=== PATIENT | female | born 1940 | race American Indian/Alaskan Native ===

== ENCOUNTER 2017-08-19 18:22 | Emergency (ER) | payer MEDICARE ==
[2017-08-19 18:23] VITALS: BMI 26.6
[2017-08-19 18:29] VITALS: BP 149/70; PULSE 84; RESP 16; TEMP 98; O2SAT 98
--- NOTE | 2017-08-19 18:44 | ED PDOC ---
Lower Extremity Pain/Injury Time Seen by Provider: 08/19/17 18:35 Chief Complaint (Nursing): Lower Extremity Problem/Injury Chief Complaint (Provider): Right Knee Pain History Per: Patient History/Exam Limitations: no limitations Onset/Duration Of Symptoms: Other Current Symptoms Are (Timing): Still Present Severity: None Additional Complaint(s): 77 year old female with a past medical history of diabetes, hypertension, cardiac stents and mild kidney disease presents to the emergency department complaining of right knee pain. Patient reports that this pain has been ongoing for months but it has worsened over the last few weeks. She also notes a sharp crampy pain in the knee. Has not taken any medications for pin. PMD: Britt Rasmussen Past Medical History Reviewed: Historical Data, Nursing Documentation, Vital Signs Vital Signs: Last Vital Signs Temp 98.0 F 08/19/17 18:26 Pulse 84 08/19/17 18:26 Resp 16 08/19/17 18:26 BP 149/70 08/19/17 18:26 Pulse Ox 98 08/19/17 18:26 - Medical History PMH: CHF, HTN, Hypercholesterolemia, Hyperlipidemia Denies: Chronic Kidney Disease - Surgical History Surgical History: Denies: Pacemaker Other surgeries: cardiac stents - Family History Family History: States: Diabetes, Hypertension - Immunization History Hx Tetanus Toxoid Vaccination: Yes Hx Influenza Vaccination: Yes Hx Pneumococcal Vaccination: Yes - Home Medications Home Medications: Ambulatory Orders Medication Instructions Recorded Aspirin [Ecotrin] 81 mg PO DAILY 10/10/15 Nifedipine [Nifedipine ER] 90 mg PO DAILY 10/10/15 Magnesium Oxide [Magnesium] 400 mg PO MWF 04/17/16 [id number] Ethyl Esters [OMEGA 3] 1 gm PO DAILY 04/17/16 Potassium Chloride [Klor-Con 10] 10 meq PO DAILY 04/17/16 Ubidecarenone [Co Q10] 100 mg PO DAILY 04/17/16 Metoprolol Succinate 25 mg PO DAILY 04/25/16 traMADol [Ultram] 50 mg PO Q8 05/22/16 Furosemide [Lasix] 20 mg PO DAILY 06/01/17 Glimepiride 1 mg PO DAILY 06/01/17 Lisinopril [Zestril] 20 mg PO DAILY 06/01/17 metFORMIN [glucOPHAGE] 2,000 mg PO DAILY 04/15/18 Diclofenac Sodium [Voltaren] 2 gm TP BID PRN #100 gel..gram. 08/19/17 - Allergies Allergies/Adverse Reactions: Allergies Allergy/AdvReac Type Severity Reaction Status Date / Time No Known Allergies Allergy Verified 06/01/17 12:45 Review of Systems Musculoskeletal: Positive for: Other (right knee pain) Physical Exam - Reviewed Nursing Documentation Reviewed: Yes Vital Signs Reviewed: Yes - Physical Exam Appears: Positive for: Non-toxic, No Acute Distress Skin: Positive for: Normal Color, Warm, Dry. Negative for: Rash Eye Exam: Positive for: Normal appearance, EOMI, PERRL Extremity: Positive for: Other (no effusion , erythema to right knee; non- tender right knee; able to flex and extend; negative Holmans sign; mild ankle edema noted ). Negative for: Tenderness, Calf Tenderness, Deformity, Swelling Neurologic/Psych: Positive for: Alert, Oriented, Gait - ECG O2 Sat by Pulse Oximetry: 98 (RA) Pulse Ox Interpretation: Normal - Progress ED Course And Treament: knee xryMPRESSION: 1. Negative for acute bone abnormality. 2. Normal variation RIGHT patella 3. Soft tissue effusion suprapatellar bursa 4. Mild osteoarthritis Thank you for allowing us to participate in the care of your patient. Dictated and Authenticated by: Jakob New MD Medical Decision Making Medical Decision Makin Initial Impression 77 year old female presenting with right knee pain Initial plan: * RAD right knee * Reevaluation Documented by Perla Rm acting as a scribe for Jamie Beaulieu PA-C. All medical record entries made by the Scribe were at my direction and personally dictated by me. I have reviewed the chart and agree that the record accurately reflects my personal performance of the history, physical exam, medical decision making, and the department course for this patient. I have also personally directed, reviewed, and agree with the discharge instructions and disposition. Disposition - Clinical Impression Clinical Impression: Arthritis, Knee effusion - Patient ED Disposition Is Patient to be Admitted: No - Disposition Disposition: Routine/Home Disposition Time: :44 Condition: FAIR Prescriptions: Diclofenac Sodium [Voltaren] 2 gm TP BID PRN #100 gel..gram. PRN Reason: Pain, Moderate (4-7) Instructions: Osteoarthritis (DC)
--- NOTE | 2017-08-20 08:48 | RAD ---
PROCEDURE: Right Knee Radiographs. HISTORY: KNEE PAIN COMPARISON: None. FINDINGS: BONES: No acute fracture. JOINTS: Tricompartmental osteoarthritis. JOINT EFFUSION: Minimal suprapatellar joint effusion. OTHER FINDINGS: Vascular calcifications. IMPRESSION: No acute fracture. Please note that this report is in general agreement with the preliminary report provided by [facility].
== END 2017-08-19 20:14 | disposition home or self-care (01) ==
LOC: H.ER 18:22
DX: M25.461 Effusion, right knee (principal)

== ENCOUNTER 2018-03-03 06:28 | Inpatient (IN) | payer MEDICARE ==
[2017-12-30 10:42] VITALS: BMI 27.3
[2018-03-03 08:22] LABS: BASO # 0.1 K/uL (0.0-0.2); BASO % 0.7 % (0.0-2.0); EOS # 0.2 K/uL (0.0-0.7); EOS % 3.2 % (0.0-4.0); HEMOGLOBIN 10.7 g/dL (12.0-16.0); LYMPH # 1.8 K/uL (1.0-4.3); LYMPH % 25.4 % (20.0-40.0); MEAN CELL VOLUME 85.4 fl (81.0-99.0); MEAN CORPUSCULAR HEMOGLOBIN 27.2 pg (27.0-31.0); MEAN CORPUSCULAR HGB CONC 31.9 g/dL (33.0-37.0); MEAN PLATELET VOLUME 9.5 fl (7.2-11.7); MONO # 0.5 K/uL (0.0-0.8); MONO % 7.2 % (0.0-10.0); NEUT # 4.6 K/uL (1.8-7.0); NEUT % 63.5 % (50.0-75.0); NRBC % 0.1 % (0.0-0.0); RBC 3.94 Mil/uL (3.80-5.20); RED CELL DISTRIBUTION WIDTH 15.7 % (11.5-14.5); WHITE BLOOD COUNT 7.2 K/uL (4.8-10.8)
[2018-03-03 08:31] LABS: ALB/GLOB RATIO 1.2 (1.0-2.1); ALBUMIN 4.2 g/dL (3.5-5.0); ALT/SGPT 24 U/L (9-52); AST/SGOT 20 U/L (14-36); BLOOD UREA NITROGEN 13 mg/dl (7-17); GFR NON-AFRICAN AMERICAN 54
[2018-03-03 08:32] LABS: PROTHROMBIN TIME 11.7 Seconds (9.8-13.1)
[2018-03-03 08:34] LABS: PARTIAL THROMBOPLASTIN TIME 33.9 Seconds (25.6-37.1)
[2018-03-03] MEDS ORDERED: Propofol 10 mg/ml Inj (20 ML) ONE (09:36)
[2018-03-03] MEDS ORDERED: Lidocaine 4% (Laryng-O-Jet) Kit MM ONE (09:37)
[2018-03-03] MEDS ORDERED: Rocuronium 10 mg/ml (5 ml) ONE (09:37)
[2018-03-03] MEDS ORDERED: Etomidate 20 mg/10ml Inj IV ONE (09:37)
[2018-03-03] MEDS ORDERED: Succinylcholine Chloride 20 mg/ml Syr (5 ml) IV ONE (09:37)
--- NOTE | 2018-03-03 09:47 | CP.PCM.HP ---
Past Patient History - Past Medical History & Family History Past Medical History?: Yes - Past Social History Smoking Status: Former Smoker - CARDIAC Hx Cardiac Disorders: Yes Hx Congestive Heart Failure: Yes Hx Hypercholesterolemia: Yes Hx Hypertension: Yes Hx Pacemaker: No Other/Comment: STENT - PULMONARY Hx Respiratory Disorders: No - NEUROLOGICAL Hx Neurological Disorder: No Hx Paralysis: No - HEENT Hx HEENT Problems: No - RENAL Hx Chronic Kidney Disease: No - ENDOCRINE/METABOLIC Hx Endocrine Disorders: Yes Hx Diabetes Mellitus Type 2: Yes - HEMATOLOGICAL/ONCOLOGICAL Hx Blood Disorders: No Hx Blood Transfusions: No Hx Blood Transfusion Reaction: No - INTEGUMENTARY Hx Dermatological Problems: No - MUSCULOSKELETAL/RHEUMATOLOGICAL Hx Musculoskeletal Disorders: Yes Hx Arthritis: Yes (knees) Hx Falls: No - GASTROINTESTINAL Hx Gastrointestinal Disorders: No Other/Comment: stomach infection (diagnosed 10/27/2015) - GENITOURINARY/GYNECOLOGICAL Hx Genitourinary Disorders: No - PSYCHIATRIC Hx Emotional Abuse: No Hx Physical Abuse: No - SURGICAL HISTORY Hx Surgeries: Yes Hx Cataract Extraction: Yes (bilateral) Hx Coronary Stent: Yes Hx Eye Surgery: Yes Other/Comment: clogged artery-stent placement 2017. biosy of the pancreas - ANESTHESIA Hx Anesthesia: Yes Hx Anesthesia Reactions: No Hx Malignant Hyperthermia: No Has any member of the family had a problem w/ anesthesia?: No Meds Allergies/Adverse Reactions: Allergies Allergy/AdvReac Type Severity Reaction Status Date / Time No Known Allergies Allergy Verified 03/03/18 08:08 Results - Vital Signs Recent Vital Signs: Last Vital Signs Temp 97.8 F 03/03/18 08:01 Pulse 61 03/03/18 08:01 Resp 18 03/03/18 08:01 BP 164/81 H 03/03/18 08:01 Pulse Ox 98 03/03/18 08:01 - Labs Result Diagrams: 03/03/18 08:14 03/03/18 08:14 Labs: Laboratory Results - last 24 hr 03/03/18 03/03/18 03/03/18 07:43 08:14 08:14 WBC 7.2 RBC 3.94 Hgb 10.7 L Hct 33.7 L MCV 85.4 MCH 27.2 MCHC 31.9 L RDW 15.7 H Plt Count 226 MPV 9.5 Neut % (Auto) 63.5 Lymph % (Auto) 25.4 Upson % (Auto) 7.2 Eos % (Auto) 3.2 Baso % (Auto) 0.7 Neut # (Auto) 4.6 Lymph # (Auto) 1.8 Upson # (Auto) 0.5 Eos # (Auto) 0.2 Baso # (Auto) 0.1 PT 11.7 INR 1.0 APTT 33.9 Sodium Potassium Chloride Carbon Dioxide Anion Gap BUN Creatinine Est GFR ( Amer) Est GFR (Non-Af Amer) POC Glucose (mg/dL) 141 H Random Glucose Calcium Total Bilirubin AST ALT Alkaline Phosphatase Total Protein Albumin Globulin Albumin/Globulin Ratio Blood Type Antibody Screen BBK History Checked 03/03/18 03/03/18 08:14 08:14 WBC RBC Hgb Hct MCV MCH MCHC RDW Plt Count MPV Neut % (Auto) Lymph % (Auto) Upson % (Auto) Eos % (Auto) Baso % (Auto) Neut # (Auto) Lymph # (Auto) Upson # (Auto) Eos # (Auto) Baso # (Auto) PT INR APTT Sodium 141 Potassium 3.4 L Chloride 106 Carbon Dioxide 26 Anion Gap 12 BUN 13 Creatinine 1.0 Est GFR ( Amer) > 60 Est GFR (Non-Af Amer) 54 POC Glucose (mg/dL) Random Glucose 152 H Calcium 10.0 Total Bilirubin 0.8 AST 20 ALT 24 Alkaline Phosphatase 85 Total Protein 7.5 Albumin 4.2 Globulin 3.3 Albumin/Globulin Ratio 1.2 Blood Type AB POSITIVE Antibody Screen Negative BBK History Checked No verified bt
[2018-03-03] MEDS ORDERED: Bacitracin Ointment 30 GM TUBE ONE (09:51)
[2018-03-03] MEDS ORDERED: ceFAZolin IV 1 gm in Dextrose 1 GM/50 ML BAG IVPB ONE (09:51)
[2018-03-03] MEDS ORDERED: Lactated Ringer's 1,000 ML IV ONE ×2 (10:05→12:45)
[2018-03-03] MEDS ORDERED: Calcium Chloride 1000 mg/10 ml Syringe ONE (11:03)
[2018-03-03] MEDS: Bupivacaine 0.5% Inj(30mL) ONE ×2 (11:12→11:50)
[2018-03-03] MEDS: EPINEPHrine 1 mg/ml (1:1000) Inj ONE ×2 (11:13→11:50)
[2018-03-03] MEDS: Morphine 1 mg/ml preservative-free Inj(Duramorph) ONE ×2 (11:14→11:50)
[2018-03-03] MEDS ORDERED: Neostigmine 1:1000 (1 mg/ml) Inj ONE (12:03)
[2018-03-03] MEDS ORDERED: HYDROmorphone 0.5 mg/0.5 ml ISec IVP PRN (12:44)
[2018-03-03] MEDS ORDERED: Bisacodyl 5mg EC Tab PO PRN (12:49)
[2018-03-03] MEDS ORDERED: Oxycodone/Acetaminophen 5/325 mg Tab PO PRN ×2 (12:49→12:58)
--- NOTE | 2018-03-03 12:49 | PCM.SURG1 ---
Surgeon's Initial Post Op Note - Surgeon's Notes Surgeon: Brett Tolbert MD Mohs Surgeon: Navin Watts PA-C Type of Anesthesia: General Endo Anesthesia Administered By: Dr. Ibarra Pre-Operative Diagnosis: Right knee DJD Operative Findings: tourniquet: 95min @300mmHG Post-Operative Diagnosis: same Operation Performed: Right total knee replacement Specimen/Specimens Removed: bone Estimated Blood Loss: EBL {In ML}: 200 Blood Products Given: N/A Drains Used: No Drains Post-Op Condition: Fair Date of Surgery/Procedure: 03/03/18 Time of Surgery/Procedure: 12:49
[2018-03-03] MEDS ORDERED: Sodium Chloride 0.9% 1,000 ML IV SCH (13:00)
--- NOTE | 2018-03-03 14:57 | RAD ---
Date of service: 03/03/2018 PROCEDURE: Right Knee Radiographs. HISTORY: pt in pacu s/p TKR right COMPARISON: None. FINDINGS: BONES: No acute fracture. Status post total knee replacement. JOINTS: Total knee replacement. JOINT EFFUSION: None. OTHER FINDINGS: Postoperative changes and in anterior soft tissues. IMPRESSION: Status post right TKR.
[2018-03-03] MEDS: Insulin Regular 100 units/ml SC SCH ×2 (17:36→21:39)
[2018-03-03] MEDS: ceFAZolin 2 GM in Sodium Chloride 0.9% 100 ML IVPB SCH (19:08)
[2018-03-03] MEDS: oxyCODONE 10 mg ER Tab (oxyCONTIN) PO SCH (21:32)
--- NOTE | 2018-03-03 23:55 | OP ---
PROCEDURE DATE: 03/03/2018 ATTENDING PHYSICIAN: Brigette Tolbert MD CREAM GATHERER: Jesús Frias PA-C PREOPERATIVE DIAGNOSIS: Right knee osteoarthritis. POSTOPERATIVE DIAGNOSIS: Right knee osteoarthritis. PROCEDURE: Right total knee replacement. IMPLANTS: DePuy Attune knee system, size 6 femur, size 5 tibial base plate, 11 mm polyethylene insert, 32 mm patellar button. ANESTHESIA TYPE: General. ESTIMATED BLOOD LOSS: 100 mL. COMPLICATIONS: None. HISTORY: The patient with prolonged history of right knee pain progressively getting worse despite extensive conservative management, which included activity modification, injections, anti-inflammatory modification and physical therapy. X-rays had revealed advanced arthritis. Patient was indicated for total knee replacement due to continued pain and limited mobility. I had a detailed discussion with the patient in the office explaining the nature of the surgery, alternatives of surgery, risks and benefits, rehabilitation protocol and surgical markings. Risks of surgery include but not limited to continued pain, lack of motion, infection, vascular injury, DVT / PE, nerve injury including peroneal nerve dysfunction, reflex sympathetic dystrophy, compartment syndrome, unforeseen medical and/or anesthesia complications, limb loss, and even . The patient expressed an understanding of the risks and possible benefits of the procedure, and is also aware of the alternatives to surgery. PROCEDURE: On the day of the surgery, the patient was admitted to pre-operative holding area. A laterality sheet was completed confirming the correct operative site. The correct surgical knee was marked in the holding area and informed consent was signed from the patient. Once again, I reviewed the risks and benefits of the surgery with the patient in detail. These risks include but are not limited to continued pain, lack of motion, infection, vascular injury, DVT / PE, nerve injury including peroneal nerve dysfunction, reflex sympathetic dystrophy, symptomatic hardware, need for further procedure and surgeries, instability, iatrogenic fractures, compartment syndrome, unforeseen medical and/or anesthesia complications, limb loss, and even . The patient expressed an understanding of the risks and possible benefits of the procedure, also aware of the alternatives to surgery and signed the informed consent. The patient was transported to the operating room and placed in the supine position, general anesthesia was obtained. Exam under anesthesia revealed 5 degrees of flexion contracture and flexion to 120, stable to varus and valgus stress. A padded tourniquet was applied to patient's operative thigh and appropriate prophylactic antibiotics were given. The operative leg was draped and prepped in standard sterile manner. Timeout was completed, confirming patient's right knee to be the correct operative site. Using an Esmarch, the extremity was exsanguinated and tourniquet was inflated to 350 mmHg. The surgical incision markings were made using patella border, tibial tubercle, patella and quadriceps tendon. Using a 10 blade, a midline incision was made. Skin dissection was taken until the prepatellar fascia was identified and the corners of the patellar tendon were marked for proper closure at the end of the procedure. Using a fresh 10 blade, a medial parapatellar arthrotomy was performed. The knee was exposed in the standard manner. The deep MCL was elevated for exposure, medial and lateral menisci were removed, ACL and PCL were also transected. The tibia was subluxed anteriorly. Planned tibial cut was made with power saw, using extra-medullary guide, perpendicular to mechanical axis of the tibia. After the cut was made, the alignment was also checked and was found to be appropriate. Tibial cut surface was measured with trial base plate and it was noted that size 5 was provide sufficient coverage without overhang. Tibial component was externally rotated and marked. Next, the knee was placed into 90 degrees of flexion. A drill hole was made within the femoral notch anterior to PCL insertion for placement of intramedullary femoral jose miguel. Intramedullary femoral jose miguel was inserted within the femoral canal and planned distal femoral cut was made. After the cut, knee was brought into full extension. Spacer blocks were used to check the extension balancing both in full extension and 30 degrees of flexion. It was found that 11 mm trial spacer block allowed full extension with symmetric varus and valgus balancing. Next we proceed with Patella resurfacing. Patella width was found to 26 mm. Using the free-hand technique the arthritic patella surface was resected. Patella was sized using the guide and it was noted that 32 mm Patella dome button would be appropriate for the patient. Next the size of femoral component was determined using the posterior referencing guide. It was noted that a size 6 femur would be appropriate for this patient without causing any significant notching. A 4 x 1 cutting block was placed and flexion gap balancing was checked. The flexion gap was found to be symmetric to the extension gap. Anterior and posterior condyle, anterior and posterior chamfer cuts were made. Next, appropriate size box cut for femoral component was prepared using the guide. The femoral trial component was impacted onto the distal femur. Appropriate size tibial trial component was also placed on the cut surface of the tibia. Using the drill and punch, keel for tibial implant was prepared. Trial tibial tray was secured onto the tibia using pins. Different size trial polyethylene inserts were secured on to the trial tibial tray to critically assess the following parametes: Full range of motion, extension and flexion gap balancing, mid-flexion stability, anterior and posterior drawer, and patellar tracking. All parameter were found to be satisfactory with 11 mm insert. All the trial components were removed. Implants were opened on the back table. Cement was mixed and we proceed with cement fixation of the implants. Tibial tray, femoral component and patellar dome button were secured with cement. Polyethylene insert was secured onto the tibial tray using locking mechanism. The knee was reduced and brought into full extension. Cement was allowed to harden until final component fixation. Knee was taken through the final range of motion for stability testing, and found to be satisfactory. 60 mL of custom cocktail mixture was injected into posterior capsule, MCL, LCL, quadriceps tendon, and patellar tendon. Wound was copiously irrigated with sterile antibiotic solution using pulse lavage. Arthrotomy was closed using heavy suture and wound was closed in standard manner. Patient was extubated, transferred to stretcher and taken to the recovery room. Post-operative instructions were provided, physical therapy consult was requested along with DVT prophylaxis and appropriate pain medications. During this procedure, I was assisted by Jesús Frias PA-C,, who assisted in positioning the patient on the operating room table as well as transferring the patient from the operating room table to the recovery room stretcher. In addition, Jesús Frias PA-C assisted me during the actual operative procedure by positioning, protecting critical neurovascular structures, exposure of the joint, and proper positioning of the implants. The presence of Jesús Frias PA-C,as my operative horticultural nursery assistant was medically necessary to ensure the utmost safety of the patient in the pre, intra-, and post-operative periods. Brigette Tolbert MD
[2018-03-04] MEDS: ceFAZolin 2 GM in Sodium Chloride 0.9% 100 ML IVPB SCH (02:10)
[2018-03-04 07:06] LABS: CALCIUM 8.9 mg/dL (8.4-10.2)
[2018-03-04 07:12] LABS: HEMOGLOBIN 8.9 g/dL (12.0-16.0); MEAN CELL VOLUME 83.9 fl (81.0-99.0); MEAN CORPUSCULAR HEMOGLOBIN 27.8 pg (27.0-31.0); MEAN CORPUSCULAR HGB CONC 33.1 g/dL (33.0-37.0); RBC 3.2 Mil/uL (3.80-5.20); RED CELL DISTRIBUTION WIDTH 15.9 % (11.5-14.5); WHITE BLOOD COUNT 8.1 K/uL (4.8-10.8)
[2018-03-04] MEDS ORDERED: NIFEdipine 90 mg ER Tab PO SCH (09:00)
[2018-03-04] MEDS ORDERED: Metoprolol Succinate 25 mg XL Tab PO SCH (09:00)
[2018-03-04] MEDS ORDERED: Potassium Chloride 10 mEq ER Tab PO SCH (09:00)
[2018-03-04] MEDS ORDERED: Magnesium Oxide 400 mg Tab UD PO SCH (09:00)
[2018-03-04] MEDS: Insulin Regular 100 units/ml SC SCH ×4 (09:45→22:07)
[2018-03-04] MEDS: oxyCODONE 10 mg ER Tab (oxyCONTIN) PO SCH ×2 (09:59→20:52)
--- NOTE | 2018-03-04 10:31 | CP.PCM.PN ---
Subjective - Date & Time of Evaluation Date of Evaluation: 03/04/18 Time of Evaluation: 09:30 - Subjective Subjective: Patient seen and examined at bedside comfortable. Pain well controlled. No acute events overnight. Denies CP/SOB/N/fever. Objective - Vital Signs/Intake and Output Vital Signs (last 24 hours): Temp Pulse Resp BP Pulse Ox 99.4 F 68 20 120/67 98 03/04/18 07:48 03/04/18 09:50 03/04/18 07:48 03/04/18 09:50 03/04/18 07:48 - Medications Medications: Current Medications Aspirin (Ecotrin) 81 mg PO DAILY [facility] Last Admin: 03/04/18 09:49 Dose: 81 mg Atorvastatin Calcium (Lipitor) 80 mg PO DAILY [facility] Last Admin: 03/04/18 09:51 Dose: 80 mg Bisacodyl (Dulcolax) 10 mg PO HS PRN PRN Reason: Constipation Celecoxib (Celebrex) 200 mg PO DAILY [facility] Last Admin: 03/04/18 09:50 Dose: 200 mg Docusate Sodium (Colace) 100 mg PO BID [facility] Last Admin: 03/04/18 09:51 Dose: 100 mg Enoxaparin Sodium (Lovenox) 40 mg SC Q24H [facility]; Protocol Furosemide (Lasix) 20 mg PO DAILY [facility] Last Admin: 03/04/18 09:50 Dose: 20 mg Glipizide (Glucotrol Xl) 2.5 mg PO DAILYWM [facility] Sodium Chloride (Sodium Chloride 0.9%) 1,000 mls @ 80 mls/hr IV .[id number] [facility] Stop: 03/04/18 13:59 Last Admin: 03/04/18 01:07 Dose: 80 mls/hr Insulin Human Regular (Humulin R) 0 units SC ACHS [facility]; Protocol Last Admin: 03/04/18 09:45 Dose: Not Given Ketorolac Tromethamine (Toradol) 15 mg IVP Q6 [facility] Stop: 03/05/18 10:01 Last Admin: 03/04/18 04:32 Dose: 15 mg Lisinopril (Zestril) 20 mg PO DAILY [facility] Last Admin: 03/04/18 09:50 Dose: 20 mg Magnesium Oxide (Mag-Ox) 400 mg PO DAILY [facility] Last Admin: 03/04/18 09:50 Dose: 400 mg [facility] Metoprolol Succinate (Toprol Xl) 25 mg PO DAILY [facility] Last Admin: 03/04/18 09:50 Dose: 25 mg Nifedipine (Procardia Xl) 90 mg PO DAILY [facility] Last Admin: 03/04/18 09:51 Dose: 90 mg Ondansetron HCl (Zofran Inj) 4 mg IVP Q6 PRN PRN Reason: Nausea/Vomiting Oxycodone HCl (Oxycontin Extended Release Tab) 10 mg PO Q12 [facility] Stop: 03/06/18 21:01 Last Admin: 03/04/18 09:59 Dose: 10 mg Oxycodone/Acetaminophen (Percocet 5/325 Mg Tab) 1 tab PO Q4 PRN PRN Reason: Pain, moderate (4-7) Stop: 03/06/18 12:50 Oxycodone/Acetaminophen (Percocet 5/325 Mg Tab) 2 tab PO Q4 PRN PRN Reason: Pain, severe (8-10) Stop: 03/06/18 12:59 Potassium Chloride (Klor-Con 10) 10 meq PO DAILY [facility] Last Admin: 03/04/18 09:50 Dose: 10 meq - Labs Labs: 03/04/18 06:00 03/04/18 06:00 PT 11.7 Seconds (9.8-13.1) 03/03/18 08:14 INR 1.0 03/03/18 08:14 APTT 33.9 Seconds (25.6-37.1) 03/03/18 08:14 - Extremities Exam Additional comments: R knee: Dressings CDI sensation intact SP/DP/TN motor intact EHL/FHL/TA/G pedal pulses intact calves soft NT b/l Assessment and Plan (1) Osteoarthritis of right knee Assessment & Plan: POD#1 s/p R TKA -pain control -PT/OT WBAT -DVT ppx -orthopedically stable for d/c to TCU -above d/w Dr. Tolbert in agreement Status: Acute
[2018-03-04] MEDS ORDERED: Enoxaparin 40 mg Syringe SC SCH (12:00)
--- NOTE | 2018-03-04 12:11 | CP.PCM.HP ---
History of Present Illness - History of Present Illness History of Present Illness: CC: R knee pain HPI: 78 YO Female with PMHx of HTN, NIDDM, OA and HLD presented to [facility] ED with severe R knee pain. Pt has chronic knee pain but worsened over the last couple of days. No relief with PO pain meds. PMD: Dr. Jones PMHx: HTN, T2DM,HLD. SurgHx: denies FH: HTN and DM Shx: denies ETOH, smoking and illicit drug use Allergies: NKDA Present on Admission - Present on Admission Any Indicators Present on Admission: No Review of Systems - Cardiovascular Cardiovascular: absent: Chest Pain, Dyspnea, Palpitations - Respiratory Respiratory: absent: Cough, Dyspnea - Gastrointestinal Gastrointestinal: absent: Abdominal Pain, Nausea, Vomiting - Musculoskeletal Musculoskeletal: Other (R knee pain ) Past Patient History - Past Medical History & Family History Past Medical History?: Yes - Past Social History Smoking Status: Former Smoker Alcohol: None Drugs: Denies - CARDIAC Hx Cardiac Disorders: Yes Hx Congestive Heart Failure: Yes Hx Hypercholesterolemia: Yes Hx Hypertension: Yes Hx Pacemaker: No Other/Comment: STENT - PULMONARY Hx Respiratory Disorders: No - NEUROLOGICAL Hx Neurological Disorder: No Hx Paralysis: No - HEENT Hx HEENT Problems: No - RENAL Hx Chronic Kidney Disease: No - ENDOCRINE/METABOLIC Hx Endocrine Disorders: Yes Hx Diabetes Mellitus Type 2: Yes - HEMATOLOGICAL/ONCOLOGICAL Hx Blood Disorders: No Hx Blood Transfusions: No Hx Blood Transfusion Reaction: No - INTEGUMENTARY Hx Dermatological Problems: No - MUSCULOSKELETAL/RHEUMATOLOGICAL Hx Musculoskeletal Disorders: Yes Hx Arthritis: Yes (knees) Hx Falls: No - GASTROINTESTINAL Hx Gastrointestinal Disorders: No Other/Comment: stomach infection (diagnosed 10/27/2015) - GENITOURINARY/GYNECOLOGICAL Hx Genitourinary Disorders: No - PSYCHIATRIC Hx Emotional Abuse: No Hx Physical Abuse: No - SURGICAL HISTORY Hx Surgeries: Yes Hx Cataract Extraction: Yes (bilateral) Hx Coronary Stent: Yes Hx Eye Surgery: Yes Other/Comment: clogged artery-stent placement 2017. biosy of the pancreas - ANESTHESIA Hx Anesthesia: Yes Hx Anesthesia Reactions: No Hx Malignant Hyperthermia: No Has any member of the family had a problem w/ anesthesia?: No Meds Allergies/Adverse Reactions: Allergies Allergy/AdvReac Type Severity Reaction Status Date / Time No Known Allergies Allergy Verified 03/03/18 08:08 Physical Exam - Constitutional Appears: No Acute Distress, Other (sitting up in chair ) - Head Exam Head Exam: NORMAL INSPECTION - Eye Exam Eye Exam: EOMI, Normal appearance - Respiratory Exam Respiratory Exam: Clear to Auscultation Bilateral. absent: Rhonchi, Wheezes - Cardiovascular Exam Cardiovascular Exam: REGULAR RHYTHM, +S1, +S2 - GI/Abdominal Exam GI & Abdominal Exam: Normal Bowel Sounds, Soft. absent: Tenderness - Extremities Exam Extremities exam: Negative for: pedal edema Additional comments: R knee in dressing Tenderness to palpation, moving toes and ankle, Good cap refill - Neurological Exam Neurological exam: Alert, Oriented x3 Results - Vital Signs Recent Vital Signs: Last Vital Signs Temp 99.4 F 03/04/18 07:48 Pulse 68 03/04/18 09:50 Resp 20 03/04/18 07:48 BP 120/67 03/04/18 09:50 Pulse Ox 98 03/04/18 07:48 - Labs Result Diagrams: 03/04/18 06:00 03/04/18 06:00 Labs: Laboratory Results - last 24 hr 03/03/18 03/03/18 03/03/18 08:14 12:48 15:46 WBC RBC Hgb Hct MCV MCH MCHC RDW Plt Count Sodium Potassium Chloride Carbon Dioxide Anion Gap BUN Creatinine Est GFR ( Amer) Est GFR (Non-Af Amer) POC Glucose (mg/dL) 147 H 149 H Random Glucose Hemoglobin A1c 7.5 H Calcium 03/03/18 03/04/18 03/04/18 21:08 05:30 06:00 WBC 8.1 RBC 3.20 L Hgb 8.9 L Hct 26.9 L MCV 83.9 MCH 27.8 MCHC 33.1 RDW 15.9 H Plt Count 151 Sodium Potassium Chloride Carbon Dioxide Anion Gap BUN Creatinine Est GFR ( Amer) Est GFR (Non-Af Amer) POC Glucose (mg/dL) 152 H 131 H Random Glucose Hemoglobin A1c Calcium 03/04/18 03/04/18 06:00 11:23 WBC RBC Hgb Hct MCV MCH MCHC RDW Plt Count Sodium 139 Potassium 3.6 Chloride 106 Carbon Dioxide 27 Anion Gap 10 BUN 14 Creatinine 1.1 Est GFR ( Amer) 58 Est GFR (Non-Af Amer) 48 POC Glucose (mg/dL) 158 H Random Glucose 143 H Hemoglobin A1c Calcium 8.9 Assessment & Plan - Assessment and Plan (Free Text) Assessment: Assessment/Plan: 78 YO Female with PMHx of HTN, NIDDM, OA and HLD is admitted for TKR. DJD/OA -ortho consulted -s/p R TKR, POD1 -pain management -c/w Lovenox SC -PT/OT on board HTN/NIDDM/HLD -chronic and controlled -c/w meds
[2018-03-04 23:00] VITALS: BP 103/60; PULSE 77; RESP 20; TEMP 98.3; O2SAT 77
[2018-03-05] MEDS ORDERED: GlipiZIDE 2.5 mg SR Tab PO SCH (08:00)
== END 2018-03-04 22:30 | DRG 470 ==
LOC: H.OPSURG 06:28 → H.MEDSURG1 12:49 → H.OPSURG 15:15
PROVIDERS: ADMIT Family Medicine; ATTEND Family Medicine
PROC: 0SRC0J9 Replacement of Right Knee Joint with Synthetic Substitute, Cemented, Open Approach (ICD-10-PCS; principal; 2018-03-03 13:15)
DX: M17.11 Unilateral primary osteoarthritis, right knee (principal); I11.0 Hypertensive heart disease with heart failure; I50.9 Heart failure, unspecified; E11.9 Type 2 diabetes mellitus without complications; E78.00 Pure hypercholesterolemia, unspecified; E78.5 Hyperlipidemia, unspecified; G89.29 Other chronic pain; Z87.891 Personal history of nicotine dependence; M24.561 Contracture, right knee

== ENCOUNTER 2018-03-04 22:33 | Inpatient (IN) | payer MEDICARE ==
[2018-03-04 23:06] VITALS: BMI 28.8
[2018-03-04] MEDS ORDERED: Oxycodone/Acetaminophen 5/325 mg Tab PO PRN ×2 (23:12)
[2018-03-05] MEDS: Insulin Regular 100 units/ml SC SCH ×4 (07:01→21:44)
[2018-03-05 08:16] VITALS: RESP 20
--- NOTE | 2018-03-05 08:35 | CP.PCM.HP ---
<Vicky Fried - Last Filed: 03/05/18 08:38> History of Present Illness - History of Present Illness History of Present Illness: HPI: 78 YO Female with PMHx of HTN, NIDDM, OA and HLD was admitted in 6S for severe knee pain. Pt has chronic knee pain but worsened over the last couple of days. No relief with PO pain meds. Ortho was consulted and pt underwent total knee repair. PMD: Dr. Jones PMHx: HTN, T2DM,HLD. SurgHx: denies FH: HTN and DM Shx: denies ETOH, smoking and illicit drug use Allergies: NKDA Present on Admission - Present on Admission Any Indicators Present on Admission: No Review of Systems - Cardiovascular Cardiovascular: absent: Chest Pain, Dyspnea - Respiratory Respiratory: absent: Cough, Dyspnea - Gastrointestinal Gastrointestinal: absent: Abdominal Pain - Musculoskeletal Additional comments: R knee pain Past Patient History - Past Medical History & Family History Past Medical History?: Yes - Past Social History Smoking Status: Former Smoker Alcohol: None Drugs: Denies - CARDIAC Hx Cardiac Disorders: Yes Hx Congestive Heart Failure: Yes Hx Hypercholesterolemia: Yes Hx Hypertension: Yes Hx Pacemaker: No Other/Comment: STENT - PULMONARY Hx Respiratory Disorders: No - NEUROLOGICAL Hx Neurological Disorder: No Hx Paralysis: No - HEENT Hx HEENT Problems: No - RENAL Hx Chronic Kidney Disease: No - ENDOCRINE/METABOLIC Hx Endocrine Disorders: Yes Hx Diabetes Mellitus Type 2: Yes - HEMATOLOGICAL/ONCOLOGICAL Hx Blood Disorders: No Hx AIDS: No Hx Blood Transfusions: No Hx Blood Transfusion Reaction: No Hx Human Immunodeficiency Virus (HIV): No - INTEGUMENTARY Hx Dermatological Problems: No - MUSCULOSKELETAL/RHEUMATOLOGICAL Hx Falls: No - GASTROINTESTINAL Hx Gastrointestinal Disorders: No Other/Comment: stomach infection (diagnosed 10/27/2015) - GENITOURINARY/GYNECOLOGICAL Hx Genitourinary Disorders: No - PSYCHIATRIC Hx Substance Use: No - SURGICAL HISTORY Hx Surgeries: Yes Hx Cataract Extraction: Yes (bilateral) Hx Coronary Stent: Yes Hx Eye Surgery: Yes Other/Comment: clogged artery-stent placement 2017. biosy of the pancreas. Current Rt TKR - ANESTHESIA Hx Anesthesia: Yes Hx Anesthesia Reactions: No Hx Malignant Hyperthermia: No Meds Allergies/Adverse Reactions: Allergies Allergy/AdvReac Type Severity Reaction Status Date / Time No Known Allergies Allergy Verified 03/03/18 08:08 Physical Exam - Constitutional Appears: No Acute Distress - Head Exam Head Exam: NORMAL INSPECTION - Eye Exam Eye Exam: Normal appearance - ENT Exam ENT Exam: Mucous Membranes Moist - Respiratory Exam Respiratory Exam: Clear to Auscultation Bilateral, NORMAL BREATHING PATTERN. absent: Wheezes - Cardiovascular Exam Cardiovascular Exam: REGULAR RHYTHM, +S1, +S2 - GI/Abdominal Exam GI & Abdominal Exam: Normal Bowel Sounds, Soft. absent: Tenderness - Extremities Exam Extremities exam: Negative for: pedal edema Additional comments: R knee in dressing Tenderness to palpation, moving toes and ankle, Good cap refill - Neurological Exam Neurological exam: Alert Results - Vital Signs Recent Vital Signs: Last Vital Signs Temp 99.0 F 03/05/18 08:15 Pulse 75 03/05/18 08:15 Resp 20 03/05/18 08:15 BP 101/61 03/05/18 08:15 Pulse Ox 98 03/05/18 08:15 Assessment & Plan - Assessment and Plan (Free Text) Assessment: Assessment/Plan: 78 YO Female with PMHx of HTN, NIDDM, OA and HLD, s/p R TKR, POD 2 is admitted to TCU for PT/OT and rehab. DJD/OA -ortho on board -s/p R TKR, POD2 -pain management -c/w Lovenox SC -PT/OT on board HTN/NIDDM/HLD -chronic and controlled -c/w meds <Shaquille Brenner - Last Filed: 03/09/18 09:12> Results - Vital Signs Recent Vital Signs: Last Vital Signs Temp 97.6 F 03/09/18 08:15 Pulse 62 03/09/18 08:26 Resp 20 03/09/18 08:15 BP 114/67 03/09/18 08:26 Pulse Ox 100 03/09/18 08:15 - Labs Result Diagrams: 03/08/18 05:55 03/08/18 05:55 Labs: Laboratory Results - last 24 hr 03/08/18 03/08/18 03/08/18 10:41 16:21 20:58 POC Glucose (mg/dL) 288 H 83 127 H 03/09/18 06:26 POC Glucose (mg/dL) 108 Assessment & Plan - Assessment and Plan (Free Text) Plan: I was present during evaluation and discussed with Dr Fried re plans of care and mgt. Shaquille Brenner M.D.
[2018-03-05] MEDS: GlipiZIDE 2.5 mg SR Tab PO SCH (08:45)
[2018-03-05] MEDS: Potassium Chloride 10 mEq ER Tab PO SCH (08:47)
[2018-03-05] MEDS: Enoxaparin 40 mg Syringe SC SCH (08:47)
[2018-03-05] MEDS: NIFEdipine 90 mg ER Tab PO SCH (08:48)
[2018-03-05] MEDS: Magnesium Oxide 400 mg Tab UD PO SCH (08:48)
[2018-03-05] MEDS: oxyCODONE 10 mg ER Tab (oxyCONTIN) PO SCH ×2 (08:48→21:41)
[2018-03-05] MEDS: Metoprolol Succinate 25 mg XL Tab PO SCH (08:49)
[2018-03-05] MEDS ORDERED: NIFEDIPINE 90 MG PO SCH (09:00)
[2018-03-05] MEDS ORDERED: MAGNESIUM OXIDE 400 MG PO SCH (09:00)
[2018-03-05] MEDS: Bisacodyl 5mg EC Tab PO PRN (17:15)
--- NOTE | 2018-03-05 18:38 | CP.PCM.PN ---
Subjective - Date & Time of Evaluation Date of Evaluation: 03/05/18 Time of Evaluation: 14:00 - Subjective Subjective: Patient seen and examined OOB to chair with PT. Pain well controlled. Desires not to use narcotics for pain. Tolerating PT well. No new complaints. Objective - Vital Signs/Intake and Output Vital Signs (last 24 hours): Temp Pulse Resp BP Pulse Ox 97.9 F 70 20 126/69 98 03/05/18 15:45 03/05/18 15:45 03/05/18 15:45 03/05/18 15:45 03/05/18 15:45 - Medications Medications: Current Medications Acetaminophen (Tylenol 325mg Tab) 650 mg PO Q6 PRN PRN Reason: Pain, Mild (1-3) Aspirin (Ecotrin) 81 mg PO DAILY [facility] Last Admin: 03/05/18 08:47 Dose: 81 mg Atorvastatin Calcium (Lipitor) 80 mg PO HS [facility] Bisacodyl (Dulcolax) 10 mg PO HS PRN PRN Reason: Constipation Last Admin: 03/05/18 17:15 Dose: 10 mg Celecoxib (Celebrex) 200 mg PO DAILY [facility] Last Admin: 03/05/18 08:45 Dose: 200 mg Docusate Sodium (Colace) 100 mg PO BID [facility] Last Admin: 03/05/18 17:14 Dose: 100 mg Enoxaparin Sodium (Lovenox) 40 mg SC DAILY [facility]; Protocol Last Admin: 03/05/18 08:47 Dose: 40 mg Glipizide (Glucotrol Xl) 2.5 mg PO BRK [facility] Last Admin: 03/05/18 08:45 Dose: 2.5 mg Insulin Human Regular (Humulin R) 0 units SC [facility]; Protocol Last Admin: 03/05/18 17:13 Dose: Not Given Lisinopril (Zestril) 20 mg PO DAILY [facility] Last Admin: 03/05/18 08:51 Dose: 20 mg Magnesium Oxide (Mag-Ox) 400 mg PO DAILY [facility] Last Admin: 03/05/18 08:48 Dose: 400 mg Metformin HCl (Glucophage) 500 mg PO DAILY [facility] Last Admin: 03/05/18 08:47 Dose: 500 mg Metoprolol Succinate (Toprol Xl) 25 mg PO DAILY [facility] Last Admin: 03/05/18 08:49 Dose: 25 mg Nifedipine (Procardia Xl) 90 mg PO DAILY [facility] Last Admin: 03/05/18 08:48 Dose: 90 mg Ondansetron HCl (Zofran Inj) 4 mg IVP Q6 PRN PRN Reason: Nausea/Vomiting Oxycodone HCl (Oxycontin Extended Release Tab) 10 mg PO Q12 [facility] Stop: 03/08/18 09:01 Last Admin: 03/05/18 08:48 Dose: 10 mg Potassium Chloride (Klor-Con 10) 10 meq PO DAILY [facility] Last Admin: 03/05/18 08:47 Dose: 10 meq - Extremities Exam Additional comments: R knee: Dressings CDI Incision CDI with april, no drainage, no erythema sensation intact SP/DP/TN motor intact EHL/FHL/TA/G pedal pulses intact calves soft NT b/l Assessment and Plan (1) Status post total right knee replacement Assessment & Plan: POD#2 s/p R TKA -Dressings changed -pain control with tylenol -PT/OT WBAT -DVT ppx -orthopedically stable -above d/w Dr. Tolbert in agreement Status: Acute
[2018-03-06 06:54] LABS: BASO % 0.4 % (0.0-2.0); EOS # 0.3 K/uL (0.0-0.7); EOS % 3.3 % (0.0-4.0); LYMPH # 1.9 K/uL (1.0-4.3); LYMPH % 22.2 % (20.0-40.0); MEAN CELL VOLUME 83.5 fl (81.0-99.0); MEAN CORPUSCULAR HEMOGLOBIN 28.2 pg (27.0-31.0); MEAN CORPUSCULAR HGB CONC 33.7 g/dL (33.0-37.0); MEAN PLATELET VOLUME 9.6 fl (7.2-11.7); MONO # 0.7 K/uL (0.0-0.8); NEUT # 5.7 K/uL (1.8-7.0); NEUT % 66.1 % (50.0-75.0); NRBC % 0.1 % (0.0-0.0); RBC 2.85 Mil/uL (3.80-5.20); RED CELL DISTRIBUTION WIDTH 15.7 % (11.5-14.5); WHITE BLOOD COUNT 8.7 K/uL (4.8-10.8)
[2018-03-06 07:18] LABS: CALCIUM 9.1 mg/dL (8.4-10.2)
[2018-03-06] MEDS: oxyCODONE 10 mg ER Tab (oxyCONTIN) PO SCH ×2 (08:16→21:54)
[2018-03-06] MEDS: GlipiZIDE 2.5 mg SR Tab PO SCH (08:19)
[2018-03-06] MEDS: Magnesium Oxide 400 mg Tab UD PO SCH (08:20)
[2018-03-06] MEDS: Potassium Chloride 10 mEq ER Tab PO SCH (08:20)
[2018-03-06] MEDS: Insulin Regular 100 units/ml SC SCH ×4 (08:20→21:50)
[2018-03-06] MEDS: Enoxaparin 40 mg Syringe SC SCH (08:21)
[2018-03-06] MEDS: Bisacodyl 5mg EC Tab PO PRN (08:21)
[2018-03-06] MEDS: Metoprolol Succinate 25 mg XL Tab PO SCH (09:27)
[2018-03-06] MEDS: NIFEdipine 90 mg ER Tab PO SCH (09:28)
[2018-03-06] MEDS ORDERED: Magnesium Hydroxide Susp 30 ml UD PO PRN (15:11)
[2018-03-06] MEDS ORDERED: Acetaminophen-Codeine 300/30 mg Tab PO PRN (15:13)
--- NOTE | 2018-03-06 15:19 | CP.PCM.CON ---
History of Present Illness - History of Present Illness History of Present Illness: Dr Thompson PMR consultation on Dhara Raymond, born 1940 who has been admitted to [facility] TCU following an admission for an elective right TKR. Prior conservative and interventional treatments had failed. Post op doing very well both in regards to pain and function. She does have constipation though. Review of Systems - Constitutional Constitutional: absent: Anorexia, Chills - EENT Eyes: absent: Change in Vision Ears: absent: Decreased Hearing, Ear Discharge Nose/Mouth/Throat: absent: Nasal Congestion, Nasal Discharge, Bleeding Gums - Cardiovascular Cardiovascular: absent: Chest Pain - Respiratory Respiratory: absent: Cough, Dyspnea - Gastrointestinal Gastrointestinal: Constipation - Musculoskeletal Musculoskeletal: absent: Numbness - Integumentary Integumentary: absent: Bleeding Lesions - Neurological Neurological: absent: Abnormal Hearing, Abnormal Movements, Abnormal Speech, Behavioral Changes - Psychiatric Psychiatric: absent: Anxiety Past Patient History - Past Medical History & Family History Past Medical History?: Yes - Past Social History Smoking Status: Former Smoker Alcohol: None Drugs: Denies Home Situation {Lives}: With Family - CARDIAC Hx Cardiac Disorders: Yes Hx Congestive Heart Failure: Yes Hx Hypercholesterolemia: Yes Hx Hypertension: Yes Hx Pacemaker: No Other/Comment: STENT - PULMONARY Hx Respiratory Disorders: No - NEUROLOGICAL Hx Neurological Disorder: No Hx Paralysis: No - HEENT Hx HEENT Problems: No - RENAL Hx Chronic Kidney Disease: No - ENDOCRINE/METABOLIC Hx Endocrine Disorders: Yes Hx Diabetes Mellitus Type 2: Yes - HEMATOLOGICAL/ONCOLOGICAL Hx Blood Disorders: No Hx AIDS: No Hx Blood Transfusions: No Hx Blood Transfusion Reaction: No Hx Human Immunodeficiency Virus (HIV): No - INTEGUMENTARY Hx Dermatological Problems: No - MUSCULOSKELETAL/RHEUMATOLOGICAL Hx Falls: No - GASTROINTESTINAL Hx Gastrointestinal Disorders: No Other/Comment: stomach infection (diagnosed 10/27/2015) - GENITOURINARY/GYNECOLOGICAL Hx Genitourinary Disorders: No - PSYCHIATRIC Hx Substance Use: No - SURGICAL HISTORY Hx Surgeries: Yes Hx Cataract Extraction: Yes (bilateral) Hx Coronary Stent: Yes Hx Eye Surgery: Yes Other/Comment: clogged artery-stent placement 2017. biosy of the pancreas. Current Rt TKR - ANESTHESIA Hx Anesthesia: Yes Hx Anesthesia Reactions: No Hx Malignant Hyperthermia: No Meds Allergies/Adverse Reactions: Allergies Allergy/AdvReac Type Severity Reaction Status Date / Time No Known Allergies Allergy Verified 03/03/18 08:08 - Medications Medications: Current Medications Acetaminophen (Tylenol 325mg Tab) 650 mg PO Q6 PRN PRN Reason: Pain, Mild (1-3) Last Admin: 03/06/18 08:18 Dose: 650 mg Acetaminophen/Codeine Phosphate (Tylenol/Codeine 300 Mg/30 Mg) 1 tab PO Q6 PRN PRN Reason: pain 4-6/10 Aspirin (Ecotrin) 81 mg PO DAILY [facility] Last Admin: 03/06/18 08:20 Dose: 81 mg Atorvastatin Calcium (Lipitor) 80 mg PO HS [facility] Last Admin: 03/05/18 21:43 Dose: 80 mg Bisacodyl (Dulcolax) 10 mg PO HS PRN PRN Reason: Constipation Last Admin: 03/06/18 08:21 Dose: 10 mg Celecoxib (Celebrex) 200 mg PO DAILY [facility] Last Admin: 03/06/18 08:19 Dose: 200 mg Docusate Sodium (Colace) 100 mg PO BID [facility] Last Admin: 03/06/18 08:19 Dose: 100 mg Enoxaparin Sodium (Lovenox) 40 mg SC DAILY [facility]; Protocol Last Admin: 03/06/18 08:21 Dose: 40 mg Glipizide (Glucotrol Xl) 2.5 mg PO BRK [facility] Last Admin: 03/06/18 08:19 Dose: 2.5 mg Insulin Human Regular (Humulin R) 0 units SC [facility]; Protocol Last Admin: 03/06/18 08:20 Dose: Not Given Lisinopril (Zestril) 20 mg PO DAILY [facility] Last Admin: 03/06/18 09:27 Dose: 20 mg Magnesium Hydroxide (Milk Of Magnesia) 30 ml PO DAILY PRN PRN Reason: Constipation Magnesium Oxide (Mag-Ox) 400 mg PO DAILY [facility] Last Admin: 03/06/18 08:20 Dose: 400 mg Metformin HCl (Glucophage) 500 mg PO DAILY [facility] Last Admin: 03/06/18 08:20 Dose: 500 mg Metoprolol Succinate (Toprol Xl) 25 mg PO DAILY [facility] Last Admin: 03/06/18 09:27 Dose: 25 mg Nifedipine (Procardia Xl) 90 mg PO DAILY [facility] Last Admin: 03/06/18 09:28 Dose: 90 mg Ondansetron HCl (Zofran Inj) 4 mg IVP Q6 PRN PRN Reason: Nausea/Vomiting Oxycodone HCl (Oxycontin Extended Release Tab) 10 mg PO Q12 [facility] Stop: 03/08/18 09:01 Last Admin: 03/06/18 08:16 Dose: 10 mg Oxycodone HCl (Oxycodone Immediate Release Tab) 5 mg PO Q6 PRN PRN Reason: pain 7-10/10 Potassium Chloride (Klor-Con 10) 10 meq PO DAILY [facility] Last Admin: 03/06/18 08:20 Dose: 10 meq Physical Exam - Constitutional Appears: Well, Non-toxic, No Acute Distress - Head Exam Head Exam: ATRAUMATIC, NORMAL INSPECTION, NORMOCEPHALIC - Eye Exam Eye Exam: EOMI - ENT Exam ENT Exam: Mucous Membranes Moist - Respiratory Exam Respiratory Exam: NORMAL BREATHING PATTERN - Cardiovascular Exam Cardiovascular Exam: REGULAR RHYTHM - GI/Abdominal Exam GI & Abdominal Exam: absent: Distended - Extremities Exam Extremities exam: Negative for: calf tenderness - Neurological Exam Neurological exam: Alert, CN II-XII Intact, Oriented x3 - Psychiatric Exam Psychiatric exam: Normal Affect, Normal Mood - Skin Skin Exam: Warm Results - Vital Signs Recent Vital Signs: Last Vital Signs Temp 98.1 F 03/06/18 11:31 Pulse 76 03/06/18 11:31 Resp 20 03/06/18 11:31 BP 124/68 03/06/18 11:31 Pulse Ox 95 03/06/18 11:31 - Labs Result Diagrams: 03/06/18 06:00 03/06/18 06:00 Labs: Laboratory Results - last 24 hr 03/05/18 03/05/18 03/06/18 16:29 20:49 05:36 WBC RBC Hgb Hct MCV MCH MCHC RDW Plt Count MPV Neut % (Auto) Lymph % (Auto) [place] % (Auto) Eos % (Auto) Baso % (Auto) Neut # (Auto) Lymph # (Auto) [place] # (Auto) Eos # (Auto) Baso # (Auto) Sodium Potassium Chloride Carbon Dioxide Anion Gap BUN Creatinine Est GFR ( Amer) Est GFR (Non-Af Amer) POC Glucose (mg/dL) 150 H 179 H 131 H Random Glucose Calcium 03/06/18 03/06/18 03/06/18 06:00 06:00 11:22 WBC 8.7 RBC 2.85 L Hgb 8.0 L Hct 23.8 L MCV 83.5 MCH 28.2 MCHC 33.7 RDW 15.7 H Plt Count 155 MPV 9.6 Neut % (Auto) 66.1 Lymph % (Auto) 22.2 [place] % (Auto) 8.0 Eos % (Auto) 3.3 Baso % (Auto) 0.4 Neut # (Auto) 5.7 Lymph # (Auto) 1.9 [place] # (Auto) 0.7 Eos # (Auto) 0.3 Baso # (Auto) 0.0 Sodium 138 Potassium 3.3 L Chloride 104 Carbon Dioxide 27 Anion Gap 10 BUN 16 Creatinine 1.1 Est GFR ( Amer) 58 Est GFR (Non-Af Amer) 48 POC Glucose (mg/dL) 181 H Random Glucose 121 H Calcium 9.1 Assessment & Plan - Assessment and Plan (Free Text) Assessment: 78 year old female s/p right TKR making great recovery PT/OT to continue to help increase functional independence Pain: controlled, but will add TYL #3 for 4-6/10 pain and oxycodone 5mg for 7- 10/10 pain. Will look to d/c oxycontin after the weekend. Vascular: no evidence of DVT, on LMWH prophylaxis GI: +_ constipation added MOM Patient continues to be an excellent TCU rehabilitation candidate and will have continued focused PT, OT and recreational therapy to help facilitate a safe and appropriate d/c plan
[2018-03-07] MEDS: Insulin Regular 100 units/ml SC SCH ×4 (06:38→22:00)
[2018-03-07] MEDS: Potassium Chloride 10 mEq ER Tab PO SCH (08:34)
[2018-03-07] MEDS: GlipiZIDE 2.5 mg SR Tab PO SCH (08:34)
[2018-03-07] MEDS: Enoxaparin 40 mg Syringe SC SCH (08:34)
[2018-03-07] MEDS: Metoprolol Succinate 25 mg XL Tab PO SCH (08:35)
[2018-03-07] MEDS: Magnesium Oxide 400 mg Tab UD PO SCH (08:35)
[2018-03-07] MEDS: oxyCODONE 10 mg ER Tab (oxyCONTIN) PO SCH ×2 (08:35→22:32)
[2018-03-07] MEDS: NIFEdipine 90 mg ER Tab PO SCH (08:35)
[2018-03-08] MEDS: Insulin Regular 100 units/ml SC SCH ×4 (07:04→22:06)
[2018-03-08 07:08] LABS: HEMOGLOBIN 8.9 g/dL (12.0-16.0); MEAN CELL VOLUME 85.1 fl (81.0-99.0); MEAN CORPUSCULAR HEMOGLOBIN 27.3 pg (27.0-31.0); MEAN CORPUSCULAR HGB CONC 32.1 g/dL (33.0-37.0); RBC 3.25 Mil/uL (3.80-5.20); RED CELL DISTRIBUTION WIDTH 15.8 % (11.5-14.5); WHITE BLOOD COUNT 10.4 K/uL (4.8-10.8)
[2018-03-08 07:27] LABS: ALB/GLOB RATIO 1.2 (1.0-2.1); ALBUMIN 3.8 g/dL (3.5-5.0); ALT/SGPT 38 U/L (9-52); AST/SGOT 48 U/L (14-36); BLOOD UREA NITROGEN 14 mg/dl (7-17); CALCIUM 9.8 mg/dL (8.4-10.2); GFR NON-AFRICAN AMERICAN 54
[2018-03-08] MEDS: GlipiZIDE 2.5 mg SR Tab PO SCH (08:58)
[2018-03-08] MEDS: Magnesium Oxide 400 mg Tab UD PO SCH (08:59)
[2018-03-08] MEDS: Enoxaparin 40 mg Syringe SC SCH (08:59)
[2018-03-08] MEDS: NIFEdipine 90 mg ER Tab PO SCH (08:59)
[2018-03-08] MEDS: Potassium Chloride 10 mEq ER Tab PO SCH (08:59)
[2018-03-08] MEDS: Metoprolol Succinate 25 mg XL Tab PO SCH (09:00)
[2018-03-08] MEDS: oxyCODONE 10 mg ER Tab (oxyCONTIN) PO SCH ×2 (09:02→22:00)
[2018-03-08] MEDS: oxyCODONE 5 mg Immediate Release Tab PO PRN ×2 (12:13→18:55)
--- NOTE | 2018-03-08 12:27 | CP.PCM.PN ---
Subjective - Date & Time of Evaluation Date of Evaluation: 03/08/18 Time of Evaluation: 12:27 - Subjective Subjective: patient seen and examined at bedside interim events noted no complaints at this time available diagnostic data reviewed Objective - Vital Signs/Intake and Output Vital Signs (last 24 hours): Temp Pulse Resp BP Pulse Ox 97.5 F L 69 20 117/67 98 03/08/18 08:23 03/08/18 09:00 03/08/18 08:23 03/08/18 09:00 03/08/18 08:23 - Medications Medications: Current Medications Acetaminophen (Tylenol 325mg Tab) 650 mg PO Q6 PRN PRN Reason: Pain, Mild (1-3) Last Admin: 03/06/18 08:18 Dose: 650 mg Acetaminophen/Codeine Phosphate (Tylenol/Codeine 300 Mg/30 Mg) 1 tab PO Q6 PRN PRN Reason: pain 4-6/10 Aspirin (Ecotrin) 81 mg PO DAILY [facility] Last Admin: 03/08/18 08:58 Dose: 81 mg Atorvastatin Calcium (Lipitor) 80 mg PO HS [facility] Last Admin: 03/07/18 22:32 Dose: 80 mg Bisacodyl (Dulcolax) 10 mg PO HS PRN PRN Reason: Constipation Last Admin: 03/06/18 08:21 Dose: 10 mg Celecoxib (Celebrex) 200 mg PO DAILY [facility] Last Admin: 03/08/18 08:58 Dose: 200 mg Docusate Sodium (Colace) 100 mg PO BID [facility] Last Admin: 03/08/18 08:58 Dose: Not Given Enoxaparin Sodium (Lovenox) 40 mg SC DAILY [facility]; Protocol Last Admin: 03/08/18 08:59 Dose: 40 mg Glipizide (Glucotrol Xl) 2.5 mg PO BRK [facility] Last Admin: 03/08/18 08:58 Dose: 2.5 mg Insulin Human Regular (Humulin R) 0 units SC [facility]; Protocol Last Admin: 03/08/18 12:15 Dose: 3 u Lactulose (Enulose) 20 gm PO DAILY PRN PRN Reason: Constipation Lisinopril (Zestril) 20 mg PO DAILY [facility] Last Admin: 03/08/18 09:00 Dose: 20 mg Magnesium Hydroxide (Milk Of Magnesia) 30 ml PO DAILY PRN PRN Reason: Constipation Magnesium Oxide (Mag-Ox) 400 mg PO DAILY [facility] Last Admin: 03/08/18 08:59 Dose: 400 mg Metformin HCl (Glucophage) 500 mg PO DAILY [facility] Last Admin: 03/08/18 08:59 Dose: 500 mg Metoprolol Succinate (Toprol Xl) 25 mg PO DAILY [facility] Last Admin: 03/08/18 09:00 Dose: 25 mg Nifedipine (Procardia Xl) 90 mg PO DAILY [facility] Last Admin: 03/08/18 08:59 Dose: 90 mg Ondansetron HCl (Zofran Inj) 4 mg IVP Q6 PRN PRN Reason: Nausea/Vomiting Oxycodone HCl (Oxycodone Immediate Release Tab) 5 mg PO Q6 PRN PRN Reason: pain 7-1010 Last Admin: 03/08/18 12:13 Dose: 5 mg Potassium Chloride (Klor-Con 10) 10 meq PO DAILY [facility] Last Admin: 03/08/18 08:59 Dose: 10 meq Sennosides (Senokot Tab) 17.2 mg PO HS [facility] Last Admin: 03/07/18 22:33 Dose: Not Given - Labs Labs: 03/08/18 05:55 03/08/18 05:55 - Constitutional Appears: Non-toxic, No Acute Distress - Head Exam Head Exam: NORMAL INSPECTION - Eye Exam Eye Exam: Normal appearance - Cardiovascular Exam Cardiovascular Exam: +S1, +S2 - GI/Abdominal Exam GI & Abdominal Exam: Soft - Neurological Exam Neurological Exam: Alert, Awake - Psychiatric Exam Psychiatric exam: Normal Affect, Normal Mood - Skin Skin Exam: Normal Color, Warm Assessment and Plan - Assessment and Plan (Free Text) Assessment: 78 YO Female with PMHx of HTN, NIDDM, OA and HLD, s/p R TKR is admitted to TCU for PT/OT and rehab. DJD/OA -ortho on board -s/p R TKR -pain management -c/w Lovenox SC -PT/OT on board HTN/NIDDM/HLD -chronic and controlled -c/w meds
[2018-03-08] MEDS: Bisacodyl 5mg EC Tab PO PRN ×2 (22:00→22:39)
[2018-03-09] MEDS: Insulin Regular 100 units/ml SC SCH ×4 (06:37→22:52)
[2018-03-09] MEDS: GlipiZIDE 2.5 mg SR Tab PO SCH (08:24)
[2018-03-09] MEDS: Potassium Chloride 10 mEq ER Tab PO SCH (08:25)
[2018-03-09] MEDS: Enoxaparin 40 mg Syringe SC SCH (08:25)
[2018-03-09] MEDS: NIFEdipine 90 mg ER Tab PO SCH (08:26)
[2018-03-09] MEDS: Metoprolol Succinate 25 mg XL Tab PO SCH (08:26)
[2018-03-09] MEDS: Magnesium Oxide 400 mg Tab UD PO SCH (08:26)
[2018-03-09] MEDS: oxyCODONE 10 mg ER Tab (oxyCONTIN) PO SCH ×2 (08:29→21:41)
--- NOTE | 2018-03-09 09:15 | CP.PCM.PN ---
Subjective - Date & Time of Evaluation Date of Evaluation: 03/06/18 Time of Evaluation: 10:30 - Subjective Subjective: Patient has some pain at the op site. Has no chest pain or SOB Ambulates with assistance. Accuchecks are elevated Objective - Vital Signs/Intake and Output Vital Signs (last 24 hours): Temp Pulse Resp BP Pulse Ox 97.6 F 62 20 114/67 100 03/09/18 08:15 03/09/18 08:26 03/09/18 08:15 03/09/18 08:26 03/09/18 08:15 - Medications Medications: Current Medications Acetaminophen (Tylenol 325mg Tab) 650 mg PO Q6 PRN PRN Reason: Pain, Mild (1-3) Last Admin: 03/06/18 08:18 Dose: 650 mg Acetaminophen/Codeine Phosphate (Tylenol/Codeine 300 Mg/30 Mg) 1 tab PO Q6 PRN PRN Reason: pain 4-6/10 Aspirin (Ecotrin) 81 mg PO DAILY [facility] Last Admin: 03/09/18 08:25 Dose: 81 mg Atorvastatin Calcium (Lipitor) 80 mg PO HS [facility] Last Admin: 03/08/18 22:00 Dose: 80 mg Bisacodyl (Dulcolax) 10 mg PO HS PRN PRN Reason: Constipation Last Admin: 03/06/18 08:21 Dose: 10 mg Celecoxib (Celebrex) 200 mg PO DAILY [facility] Last Admin: 03/09/18 08:24 Dose: 200 mg Docusate Sodium (Colace) 100 mg PO BID [facility] Last Admin: 03/09/18 08:24 Dose: 100 mg Enoxaparin Sodium (Lovenox) 40 mg SC DAILY [facility]; Protocol Last Admin: 03/09/18 08:25 Dose: 40 mg Ferrous Sulfate (Feosol) 325 mg PO BID [facility] Last Admin: 03/09/18 08:29 Dose: 325 mg Glipizide (Glucotrol Xl) 2.5 mg PO BRK [facility] Last Admin: 03/09/18 08:24 Dose: 2.5 mg Insulin Human Regular (Humulin R) 0 units SC ACHS [facility]; Protocol Last Admin: 03/09/18 06:37 Dose: Not Given Lactulose (Enulose) 20 gm PO DAILY PRN PRN Reason: Constipation Lisinopril (Zestril) 20 mg PO DAILY [facility] Last Admin: 03/09/18 08:26 Dose: 20 mg Magnesium Hydroxide (Milk Of Magnesia) 30 ml PO DAILY PRN PRN Reason: Constipation Magnesium Oxide (Mag-Ox) 400 mg PO DAILY [facility] Last Admin: 03/09/18 08:26 Dose: 400 mg Metformin HCl (Glucophage) 500 mg PO DAILY [facility] Last Admin: 03/09/18 08:25 Dose: 500 mg Metoprolol Succinate (Toprol Xl) 25 mg PO DAILY [facility] Last Admin: 03/09/18 08:26 Dose: 25 mg Nifedipine (Procardia Xl) 90 mg PO DAILY [facility] Last Admin: 03/09/18 08:26 Dose: 90 mg Ondansetron HCl (Zofran Inj) 4 mg IVP Q6 PRN PRN Reason: Nausea/Vomiting Oxycodone HCl (Oxycodone Immediate Release Tab) 5 mg PO Q6 PRN PRN Reason: pain 7-10/10 Last Admin: 03/08/18 18:55 Dose: 5 mg Oxycodone HCl (Oxycontin Extended Release Tab) 10 mg PO Q12 [facility] Stop: 03/11/18 21:01 Last Admin: 03/09/18 08:29 Dose: 10 mg Potassium Chloride (Klor-Con 10) 10 meq PO DAILY [facility] Last Admin: 03/09/18 08:25 Dose: 10 meq Sennosides (Senokot Tab) 17.2 mg PO HS [facility] Last Admin: 03/08/18 22:00 Dose: Not Given - Labs Labs: 03/08/18 05:55 03/08/18 05:55 - Head Exam Head Exam: NORMAL INSPECTION - Eye Exam Eye Exam: Normal appearance - ENT Exam ENT Exam: Mucous Membranes Moist - Respiratory Exam Respiratory Exam: Clear to Ausculation Bilateral - Cardiovascular Exam Cardiovascular Exam: REGULAR RHYTHM - GI/Abdominal Exam GI & Abdominal Exam: Normal Bowel Sounds - Neurological Exam Neurological Exam: Awake, Oriented x3 - Psychiatric Exam Psychiatric exam: Normal Mood Assessment and Plan (1) Status post total right knee replacement Status: Acute (2) Osteoarthritis of right knee Status: Acute (3) Diabetes mellitus Status: Chronic (4) HTN (hypertension) Status: Chronic - Assessment and Plan (Free Text) Plan: Cont meds Cont tx pain meds. increase meytformin to bid add januvia
--- NOTE | 2018-03-09 09:21 | CP.PCM.PN ---
Subjective - Date & Time of Evaluation Date of Evaluation: 03/07/18 Time of Evaluation: 11:00 - Subjective Subjective: Patient continues to do well Has no chest pain or SOB afebrile Objective - Vital Signs/Intake and Output Vital Signs (last 24 hours): Temp Pulse Resp BP Pulse Ox 97.6 F 62 20 114/67 100 03/09/18 08:15 03/09/18 08:26 03/09/18 08:15 03/09/18 08:26 03/09/18 08:15 - Medications Medications: Current Medications Acetaminophen (Tylenol 325mg Tab) 650 mg PO Q6 PRN PRN Reason: Pain, Mild (1-3) Last Admin: 03/06/18 08:18 Dose: 650 mg Acetaminophen/Codeine Phosphate (Tylenol/Codeine 300 Mg/30 Mg) 1 tab PO Q6 PRN PRN Reason: pain 4-6/10 Aspirin (Ecotrin) 81 mg PO DAILY [facility] Last Admin: 03/09/18 08:25 Dose: 81 mg Atorvastatin Calcium (Lipitor) 80 mg PO HS [facility] Last Admin: 03/08/18 22:00 Dose: 80 mg Bisacodyl (Dulcolax) 10 mg PO HS PRN PRN Reason: Constipation Last Admin: 03/06/18 08:21 Dose: 10 mg Celecoxib (Celebrex) 200 mg PO DAILY [facility] Last Admin: 03/09/18 08:24 Dose: 200 mg Docusate Sodium (Colace) 100 mg PO BID [facility] Last Admin: 03/09/18 08:24 Dose: 100 mg Enoxaparin Sodium (Lovenox) 40 mg SC DAILY [facility]; Protocol Last Admin: 03/09/18 08:25 Dose: 40 mg Ferrous Sulfate (Feosol) 325 mg PO BID [facility] Last Admin: 03/09/18 08:29 Dose: 325 mg Glipizide (Glucotrol Xl) 2.5 mg PO BRK [facility] Last Admin: 03/09/18 08:24 Dose: 2.5 mg Insulin Human Regular (Humulin R) 0 units SC ACHS [facility]; Protocol Last Admin: 03/09/18 06:37 Dose: Not Given Lactulose (Enulose) 20 gm PO DAILY PRN PRN Reason: Constipation Lisinopril (Zestril) 20 mg PO DAILY [facility] Last Admin: 03/09/18 08:26 Dose: 20 mg Magnesium Hydroxide (Milk Of Magnesia) 30 ml PO DAILY PRN PRN Reason: Constipation Magnesium Oxide (Mag-Ox) 400 mg PO DAILY [facility] Last Admin: 03/09/18 08:26 Dose: 400 mg Metformin HCl (Glucophage) 500 mg PO DAILY [facility] Last Admin: 03/09/18 08:25 Dose: 500 mg Metoprolol Succinate (Toprol Xl) 25 mg PO DAILY [facility] Last Admin: 03/09/18 08:26 Dose: 25 mg Nifedipine (Procardia Xl) 90 mg PO DAILY [facility] Last Admin: 03/09/18 08:26 Dose: 90 mg Ondansetron HCl (Zofran Inj) 4 mg IVP Q6 PRN PRN Reason: Nausea/Vomiting Oxycodone HCl (Oxycodone Immediate Release Tab) 5 mg PO Q6 PRN PRN Reason: pain 7-1010 Last Admin: 03/08/18 18:55 Dose: 5 mg Oxycodone HCl (Oxycontin Extended Release Tab) 10 mg PO Q12 [facility] Stop: 03/11/18 21:01 Last Admin: 03/09/18 08:29 Dose: 10 mg Potassium Chloride (Klor-Con 10) 10 meq PO DAILY [facility] Last Admin: 03/09/18 08:25 Dose: 10 meq Sennosides (Senokot Tab) 17.2 mg PO HS [facility] Last Admin: 03/08/18 22:00 Dose: Not Given - Labs Labs: 03/08/18 05:55 03/08/18 05:55 - Head Exam Head Exam: NORMAL INSPECTION - Eye Exam Eye Exam: Normal appearance - Respiratory Exam Respiratory Exam: Clear to Ausculation Bilateral - Cardiovascular Exam Cardiovascular Exam: REGULAR RHYTHM - GI/Abdominal Exam GI & Abdominal Exam: Normal Bowel Sounds Assessment and Plan (1) Status post total right knee replacement Status: Acute (2) Osteoarthritis of right knee Status: Acute (3) Diabetes mellitus Status: Chronic (4) HTN (hypertension) Status: Chronic - Assessment and Plan (Free Text) Plan: Cont meds Cont PT Cont tx
--- NOTE | 2018-03-09 10:23 | CP.PCM.PN ---
Subjective - Date & Time of Evaluation Date of Evaluation: 03/09/18 Time of Evaluation: 07:30 - Subjective Subjective: Patient seen and examined at bedside comfortable. Pain well controlled. Doing extremely well with PT. No new complaints. Objective - Vital Signs/Intake and Output Vital Signs (last 24 hours): Temp Pulse Resp BP Pulse Ox 97.6 F 62 20 156/73 H 100 03/09/18 08:15 03/09/18 08:26 03/09/18 08:15 03/09/18 09:02 03/09/18 08:15 - Medications Medications: Current Medications Acetaminophen (Tylenol 325mg Tab) 650 mg PO Q6 PRN PRN Reason: Pain, Mild (1-3) Last Admin: 03/06/18 08:18 Dose: 650 mg Acetaminophen/Codeine Phosphate (Tylenol/Codeine 300 Mg/30 Mg) 1 tab PO Q6 PRN PRN Reason: pain 4-6/10 Aspirin (Ecotrin) 81 mg PO DAILY [facility] Last Admin: 03/09/18 08:25 Dose: 81 mg Atorvastatin Calcium (Lipitor) 80 mg PO HS [facility] Last Admin: 03/08/18 22:00 Dose: 80 mg Bisacodyl (Dulcolax) 10 mg PO HS PRN PRN Reason: Constipation Last Admin: 03/06/18 08:21 Dose: 10 mg Celecoxib (Celebrex) 200 mg PO DAILY [facility] Last Admin: 03/09/18 08:24 Dose: 200 mg Docusate Sodium (Colace) 100 mg PO BID [facility] Last Admin: 03/09/18 08:24 Dose: 100 mg Enoxaparin Sodium (Lovenox) 40 mg SC DAILY [facility]; Protocol Last Admin: 03/09/18 08:25 Dose: 40 mg Ferrous Sulfate (Feosol) 325 mg PO BID [facility] Last Admin: 03/09/18 08:29 Dose: 325 mg Glipizide (Glucotrol Xl) 2.5 mg PO BRK [facility] Last Admin: 03/09/18 08:24 Dose: 2.5 mg Insulin Human Regular (Humulin R) 0 units SC [facility]; Protocol Last Admin: 03/09/18 06:37 Dose: Not Given Lactulose (Enulose) 20 gm PO DAILY PRN PRN Reason: Constipation Lisinopril (Zestril) 20 mg PO DAILY [facility] Last Admin: 03/09/18 08:26 Dose: 20 mg Magnesium Hydroxide (Milk Of Magnesia) 30 ml PO DAILY PRN PRN Reason: Constipation Magnesium Oxide (Mag-Ox) 400 mg PO DAILY [facility] Last Admin: 03/09/18 08:26 Dose: 400 mg Metformin HCl (Glucophage) 500 mg PO DAILY [facility] Last Admin: 03/09/18 08:25 Dose: 500 mg Metoprolol Succinate (Toprol Xl) 25 mg PO DAILY [facility] Last Admin: 03/09/18 08:26 Dose: 25 mg Nifedipine (Procardia Xl) 90 mg PO DAILY [facility] Last Admin: 03/09/18 08:26 Dose: 90 mg Ondansetron HCl (Zofran Inj) 4 mg IVP Q6 PRN PRN Reason: Nausea/Vomiting Oxycodone HCl (Oxycodone Immediate Release Tab) 5 mg PO Q6 PRN PRN Reason: pain 7-1010 Last Admin: 03/08/18 18:55 Dose: 5 mg Oxycodone HCl (Oxycontin Extended Release Tab) 10 mg PO Q12 [facility] Stop: 03/11/18 21:01 Last Admin: 03/09/18 08:29 Dose: 10 mg Potassium Chloride (Klor-Con 10) 10 meq PO DAILY [facility] Last Admin: 03/09/18 08:25 Dose: 10 meq Sennosides (Senokot Tab) 17.2 mg PO HS [facility] Last Admin: 03/08/18 22:00 Dose: Not Given - Labs Labs: 03/08/18 05:55 03/08/18 05:55 - Extremities Exam Additional comments: R knee: [place] CDI sensation intact SP/DP/TN motor intact EHL/FHL/TA/G pedal pulses intact calves soft NT b/l Assessment and Plan (1) Status post total right knee replacement Assessment & Plan: POD#6 s/p R TKA -PT/OT WBAT -DVT ppx -orthopedically stable -above d/w Dr. Tolbert in agreement Status: Acute
--- NOTE | 2018-03-09 18:03 | CP.PCM.PN ---
Subjective - Date & Time of Evaluation Date of Evaluation: 03/09/18 Time of Evaluation: 18:02 - Subjective Subjective: Patient seen in the room doing quite well denies sob/cp or fever able to ambulate up stairs today making great gains continue with current care Objective - Vital Signs/Intake and Output Vital Signs (last 24 hours): Temp Pulse Resp BP Pulse Ox 98.0 F 81 20 145/75 94 L 03/09/18 16:34 03/09/18 16:34 03/09/18 16:34 03/09/18 16:34 03/09/18 16:34 - Medications Medications: Current Medications Acetaminophen (Tylenol 325mg Tab) 650 mg PO Q6 PRN PRN Reason: Pain, Mild (1-3) Last Admin: 03/06/18 08:18 Dose: 650 mg Acetaminophen/Codeine Phosphate (Tylenol/Codeine 300 Mg/30 Mg) 1 tab PO Q6 PRN PRN Reason: pain 4-6/10 Aspirin (Ecotrin) 81 mg PO DAILY [facility] Last Admin: 03/09/18 08:25 Dose: 81 mg Atorvastatin Calcium (Lipitor) 80 mg PO HS [facility] Last Admin: 03/08/18 22:00 Dose: 80 mg Bisacodyl (Dulcolax) 10 mg PO HS PRN PRN Reason: Constipation Last Admin: 03/06/18 08:21 Dose: 10 mg Celecoxib (Celebrex) 200 mg PO DAILY [facility] Last Admin: 03/09/18 08:24 Dose: 200 mg Docusate Sodium (Colace) 100 mg PO BID [facility] Last Admin: 03/09/18 17:49 Dose: Not Given Enoxaparin Sodium (Lovenox) 40 mg SC DAILY [facility]; Protocol Last Admin: 03/09/18 08:25 Dose: 40 mg Ferrous Sulfate (Feosol) 325 mg PO BID [facility] Last Admin: 03/09/18 17:49 Dose: Not Given Glipizide (Glucotrol Xl) 2.5 mg PO BRK [facility] Last Admin: 03/09/18 08:24 Dose: 2.5 mg Insulin Human Regular (Humulin R) 0 units SC [facility]; Protocol Last Admin: 03/09/18 17:30 Dose: Not Given Lactulose (Enulose) 20 gm PO DAILY PRN PRN Reason: Constipation Lisinopril (Zestril) 20 mg PO DAILY [facility] Last Admin: 03/09/18 08:26 Dose: 20 mg Magnesium Hydroxide (Milk Of Magnesia) 30 ml PO DAILY PRN PRN Reason: Constipation Magnesium Oxide (Mag-Ox) 400 mg PO DAILY [facility] Last Admin: 03/09/18 08:26 Dose: 400 mg Metformin HCl (Glucophage) 500 mg PO DAILY [facility] Last Admin: 03/09/18 08:25 Dose: 500 mg Metoprolol Succinate (Toprol Xl) 25 mg PO DAILY [facility] Last Admin: 03/09/18 08:26 Dose: 25 mg Nifedipine (Procardia Xl) 90 mg PO DAILY [facility] Last Admin: 03/09/18 08:26 Dose: 90 mg Ondansetron HCl (Zofran Odt) 4 mg PO Q8H PRN PRN Reason: Nausea/Vomiting Last Admin: 03/09/18 16:18 Dose: 4 mg Oxycodone HCl (Oxycodone Immediate Release Tab) 5 mg PO Q6 PRN PRN Reason: pain 7-10/10 Last Admin: 03/08/18 18:55 Dose: 5 mg Oxycodone HCl (Oxycontin Extended Release Tab) 10 mg PO Q12 [facility] Stop: 03/11/18 21:01 Last Admin: 03/09/18 08:29 Dose: 10 mg Potassium Chloride (Klor-Con 10) 10 meq PO DAILY [facility] Last Admin: 03/09/18 08:25 Dose: 10 meq Sennosides (Senokot Tab) 17.2 mg PO HS [facility] Last Admin: 03/08/18 22:00 Dose: Not Given - Labs Labs: 03/08/18 05:55 03/08/18 05:55
[2018-03-10] MEDS: Insulin Regular 100 units/ml SC SCH ×4 (06:39→22:16)
[2018-03-10] MEDS: Metoprolol Succinate 25 mg XL Tab PO SCH (08:44)
[2018-03-10] MEDS: GlipiZIDE 2.5 mg SR Tab PO SCH (08:44)
[2018-03-10] MEDS: NIFEdipine 90 mg ER Tab PO SCH (08:44)
[2018-03-10] MEDS: Magnesium Oxide 400 mg Tab UD PO SCH (08:44)
[2018-03-10] MEDS: Potassium Chloride 10 mEq ER Tab PO SCH (08:44)
[2018-03-10] MEDS: Enoxaparin 40 mg Syringe SC SCH (08:45)
[2018-03-10] MEDS: oxyCODONE 10 mg ER Tab (oxyCONTIN) PO SCH (08:47)
--- NOTE | 2018-03-10 16:50 | CP.PCM.PN ---
Subjective - Date & Time of Evaluation Date of Evaluation: 03/10/18 Time of Evaluation: 14:30 - Subjective Subjective: Patient seen and examined at bedside. Patient is resting comfortably. She has no current complaints. She reports her last BM was on Friday. No overnight events, vitally stable and afebrile. Denies chest pain, shortness of breath, cough, abdominal pain, nausea or vomiting. Patient stable for discharge tomorrow. Objective - Vital Signs/Intake and Output Vital Signs (last 24 hours): Temp Pulse Resp BP Pulse Ox 98.6 F 69 20 119/70 98 03/10/18 16:16 03/10/18 16:16 03/10/18 16:16 03/10/18 16:16 03/10/18 16:16 - Medications Medications: Current Medications Acetaminophen (Tylenol 325mg Tab) 650 mg PO Q6 PRN PRN Reason: Pain, Mild (1-3) Last Admin: 03/06/18 08:18 Dose: 650 mg Acetaminophen/Codeine Phosphate (Tylenol/Codeine 300 Mg/30 Mg) 1 tab PO Q6 PRN PRN Reason: pain 4-6/10 Aspirin (Ecotrin) 81 mg PO DAILY [facility] Last Admin: 03/10/18 08:43 Dose: 81 mg Atorvastatin Calcium (Lipitor) 80 mg PO HS [facility] Last Admin: 03/09/18 21:40 Dose: 80 mg Bisacodyl (Dulcolax) 10 mg PO HS PRN PRN Reason: Constipation Last Admin: 03/06/18 08:21 Dose: 10 mg Celecoxib (Celebrex) 200 mg PO DAILY [facility] Last Admin: 03/10/18 08:43 Dose: 200 mg Docusate Sodium (Colace) 100 mg PO BID [facility] Last Admin: 03/10/18 16:32 Dose: 100 mg Enoxaparin Sodium (Lovenox) 40 mg SC DAILY [facility]; Protocol Last Admin: 03/10/18 08:45 Dose: 40 mg Ferrous Sulfate (Feosol) 325 mg PO BID [facility] Last Admin: 03/10/18 16:32 Dose: 325 mg Glipizide (Glucotrol Xl) 2.5 mg PO BRK [facility] Last Admin: 03/10/18 08:44 Dose: 2.5 mg Insulin Human Regular (Humulin R) 0 units SC [facility]; Protocol Last Admin: 03/10/18 16:32 Dose: Not Given Lactulose (Enulose) 20 gm PO DAILY PRN PRN Reason: Constipation Lisinopril (Zestril) 20 mg PO DAILY [facility] Last Admin: 03/10/18 08:44 Dose: 20 mg Magnesium Hydroxide (Milk Of Magnesia) 30 ml PO DAILY PRN PRN Reason: Constipation Magnesium Oxide (Mag-Ox) 400 mg PO DAILY [facility] Last Admin: 03/10/18 08:44 Dose: 400 mg Metformin HCl (Glucophage) 500 mg PO DAILY [facility] Last Admin: 03/10/18 08:44 Dose: 500 mg Metoprolol Succinate (Toprol Xl) 25 mg PO DAILY [facility] Last Admin: 03/10/18 08:44 Dose: 25 mg Nifedipine (Procardia Xl) 90 mg PO DAILY [facility] Last Admin: 03/10/18 08:44 Dose: 90 mg Ondansetron HCl (Zofran Odt) 4 mg PO Q8H PRN PRN Reason: Nausea/Vomiting Last Admin: 03/09/18 16:18 Dose: 4 mg Oxycodone HCl (Oxycodone Immediate Release Tab) 5 mg PO Q6 PRN PRN Reason: pain 7-10/10 Last Admin: 03/08/18 18:55 Dose: 5 mg Oxycodone HCl (Oxycontin Extended Release Tab) 10 mg PO Q12 [facility] Stop: 03/11/18 21:01 Last Admin: 03/10/18 08:47 Dose: 10 mg Potassium Chloride (Klor-Con 10) 10 meq PO DAILY [facility] Last Admin: 03/10/18 08:44 Dose: 10 meq Sennosides (Senokot Tab) 17.2 mg PO HS [facility] Last Admin: 03/09/18 21:41 Dose: 17.2 mg - Labs Labs: 03/08/18 05:55 03/08/18 05:55 - Constitutional Appears: Well, Non-toxic, No Acute Distress - Head Exam Head Exam: NORMAL INSPECTION - Eye Exam Eye Exam: Normal appearance - ENT Exam ENT Exam: Mucous Membranes Moist - Respiratory Exam Respiratory Exam: Clear to Ausculation Bilateral, NORMAL BREATHING PATTERN. absent: Chest Wall Tenderness, Decreased Breath Sounds, Prolonged Expiratory Phase, Rales, Rhonchi, Wheezes, Respiratory Distress, Stridor - Cardiovascular Exam Cardiovascular Exam: REGULAR RHYTHM, +S1, +S2. absent: Irregular Rhythm - GI/Abdominal Exam GI & Abdominal Exam: Distended, Soft, Hypoactive Bowel Sounds. absent: Firm, Guarding, Rigid, Tenderness, Rebound - Extremities Exam Extremities Exam: Normal Capillary Refill, Normal Inspection. absent: Pedal Edema, Tenderness Additional comments: right knee with bandage-clean and dry. no erythema noted. no swelling of joints noted. +2 dorsalis pedis and tibialis bilaterally. - Neurological Exam Neurological Exam: Alert, Awake - Psychiatric Exam Psychiatric exam: Normal Affect, Normal Mood - Skin Skin Exam: Dry, Intact, Normal Color, Warm Assessment and Plan - Assessment and Plan (Free Text) Assessment: 78 year old female with history of HTN, NIDDM, OA and HLD, s/p R TKR POD # 7 is admitted to TCU for PT/OT and rehab. Plan: DJD/OA -ortho on board -s/p R TKR POD #7 -pain management -c/w Lovenox SC -PT/OT on board- patient tolerating PT with minimal pain. HTN/NIDDM/HLD -chronic and controlled -c/w meds
--- NOTE | 2018-03-10 17:52 | CP.PCM.PN ---
Subjective - Date & Time of Evaluation Date of Evaluation: 03/10/18 Time of Evaluation: 17:51 - Subjective Subjective: Patient seen in the room pain is minimal good right knee ROM tolerating therapies well d/c home tomorrow I will d/c the oxycontin and write for the Percocet. Objective - Vital Signs/Intake and Output Vital Signs (last 24 hours): Temp Pulse Resp BP Pulse Ox 98.6 F 69 20 119/70 98 03/10/18 16:16 03/10/18 16:16 03/10/18 16:16 03/10/18 16:16 03/10/18 16:16 - Medications Medications: Current Medications Acetaminophen (Tylenol 325mg Tab) 650 mg PO Q6 PRN PRN Reason: Pain, Mild (1-3) Last Admin: 03/06/18 08:18 Dose: 650 mg Acetaminophen/Codeine Phosphate (Tylenol/Codeine 300 Mg/30 Mg) 1 tab PO Q6 PRN PRN Reason: pain 4-6/10 Aspirin (Ecotrin) 81 mg PO DAILY [facility] Last Admin: 03/10/18 08:43 Dose: 81 mg Atorvastatin Calcium (Lipitor) 80 mg PO HS [facility] Last Admin: 03/09/18 21:40 Dose: 80 mg Bisacodyl (Dulcolax) 10 mg PO HS PRN PRN Reason: Constipation Last Admin: 03/06/18 08:21 Dose: 10 mg Celecoxib (Celebrex) 200 mg PO DAILY [facility] Last Admin: 03/10/18 08:43 Dose: 200 mg Docusate Sodium (Colace) 100 mg PO BID [facility] Last Admin: 03/10/18 16:32 Dose: 100 mg Enoxaparin Sodium (Lovenox) 40 mg SC DAILY [facility]; Protocol Last Admin: 03/10/18 08:45 Dose: 40 mg Ferrous Sulfate (Feosol) 325 mg PO BID [facility] Last Admin: 03/10/18 16:32 Dose: 325 mg Glipizide (Glucotrol Xl) 2.5 mg PO BRK [facility] Last Admin: 03/10/18 08:44 Dose: 2.5 mg Insulin Human Regular (Humulin R) 0 units SC ACHS [facility]; Protocol Last Admin: 03/10/18 16:32 Dose: Not Given Lactulose (Enulose) 20 gm PO DAILY PRN PRN Reason: Constipation Lisinopril (Zestril) 20 mg PO DAILY [facility] Last Admin: 03/10/18 08:44 Dose: 20 mg Magnesium Hydroxide (Milk Of Magnesia) 30 ml PO DAILY PRN PRN Reason: Constipation Magnesium Oxide (Mag-Ox) 400 mg PO DAILY [facility] Last Admin: 03/10/18 08:44 Dose: 400 mg Metformin HCl (Glucophage) 500 mg PO DAILY [facility] Last Admin: 03/10/18 08:44 Dose: 500 mg Metoprolol Succinate (Toprol Xl) 25 mg PO DAILY [facility] Last Admin: 03/10/18 08:44 Dose: 25 mg Nifedipine (Procardia Xl) 90 mg PO DAILY [facility] Last Admin: 03/10/18 08:44 Dose: 90 mg Ondansetron HCl (Zofran Odt) 4 mg PO Q8H PRN PRN Reason: Nausea/Vomiting Last Admin: 03/09/18 16:18 Dose: 4 mg Oxycodone HCl (Oxycodone Immediate Release Tab) 5 mg PO Q6 PRN PRN Reason: pain 7-10/10 Last Admin: 03/08/18 18:55 Dose: 5 mg Oxycodone HCl (Oxycontin Extended Release Tab) 10 mg PO Q12 [facility] Stop: 03/11/18 21:01 Last Admin: 03/10/18 08:47 Dose: 10 mg Potassium Chloride (Klor-Con 10) 10 meq PO DAILY [facility] Last Admin: 03/10/18 08:44 Dose: 10 meq Sennosides (Senokot Tab) 17.2 mg PO HS [facility] Last Admin: 03/09/18 21:41 Dose: 17.2 mg - Labs Labs: 03/08/18 05:55 03/08/18 05:55
[2018-03-10] MEDS: oxyCODONE 5 mg Immediate Release Tab PO PRN (22:23)
[2018-03-11] MEDS: oxyCODONE 5 mg Immediate Release Tab PO PRN (04:45)
[2018-03-11] MEDS: Insulin Regular 100 units/ml SC SCH ×2 (06:37→11:58)
[2018-03-11 08:07] VITALS: BP 115/69; PULSE 70; TEMP 97.6; O2SAT 98
--- NOTE | 2018-03-11 08:30 | CP.PCM.DIS ---
Provider - Provider Date of Admission: 03/04/18 23:08 Attending physician: Britt Jones MD Primary care physician: Britt Jones MD Consults: 03/04/18 23:10 Orthopedic Consult Routine Comment: Consulting Provider: Brigette Tolbert Consulting Physician: Brigette Tolbert Reason for Consult: pls follow care while in TCU Physiatry Consult Routine Comment: Consulting Provider: Kane Thompson Consulting Physician: Kane Thompson Reason for Consult: S/P Rt TKR 03/05/18 09:00 Case Management Referral Routine Comment: Physician Instructions: Reason For Exam: Reason for Referral: Discharge Planning Time Spent in preparation of Discharge (in minutes): 30 Hospital Course - Lab Results Lab Results: Most Recent Lab Values WBC 10.4 K/uL (4.8-10.8) 03/08/18 05:55 RBC 3.25 Mil/uL (3.80-5.20) L 03/08/18 05:55 Hgb 8.9 g/dL (12.0-16.0) L 03/08/18 05:55 Hct 27.7 % (34.0-47.0) L 03/08/18 05:55 MCV 85.1 fl (81.0-99.0) 03/08/18 05:55 MCH 27.3 pg (27.0-31.0) 03/08/18 05:55 MCHC 32.1 g/dL (33.0-37.0) L 03/08/18 05:55 RDW 15.8 % (11.5-14.5) H 03/08/18 05:55 Plt Count 236 K/uL (130-400) 03/08/18 05:55 MPV 9.6 fl (7.2-11.7) 03/06/18 06:00 Neut % (Auto) 66.1 % (50.0-75.0) 03/06/18 06:00 Lymph % (Auto) 22.2 % (20.0-40.0) 03/06/18 06:00 Logan % (Auto) 8.0 % (0.0-10.0) 03/06/18 06:00 Eos % (Auto) 3.3 % (0.0-4.0) 03/06/18 06:00 Baso % (Auto) 0.4 % (0.0-2.0) 03/06/18 06:00 Neut # (Auto) 5.7 K/uL (1.8-7.0) 03/06/18 06:00 Lymph # (Auto) 1.9 K/uL (1.0-4.3) 03/06/18 06:00 Logan # (Auto) 0.7 K/uL (0.0-0.8) 03/06/18 06:00 Eos # (Auto) 0.3 K/uL (0.0-0.7) 03/06/18 06:00 Baso # (Auto) 0.0 K/uL (0.0-0.2) 03/06/18 06:00 Sodium 140 mmol/l (132-148) 03/08/18 05:55 Potassium 4.2 MMOL/L (3.6-5.0) 03/08/18 05:55 Chloride 99 mmol/L (98-107) 03/08/18 05:55 Carbon Dioxide 28 mmol/L (22-30) 03/08/18 05:55 Anion Gap 17 (10-20) 03/08/18 05:55 BUN 14 mg/dl (7-17) 03/08/18 05:55 Creatinine 1.0 mg/dl (0.7-1.2) 03/08/18 05:55 Est GFR ( Amer) > 60 03/08/18 05:55 Est GFR (Non-Af Amer) 54 03/08/18 05:55 POC Glucose (mg/dL) 98 mg/dL (65-110) 03/10/18 20:58 Random Glucose 105 mg/dL (65-105) 03/08/18 05:55 Calcium 9.8 mg/dL (8.4-10.2) 03/08/18 05:55 Total Bilirubin 1.6 mg/dl (0.2-1.3) H 03/08/18 05:55 AST 48 U/L (14-36) H D 03/08/18 05:55 ALT 38 U/L (9-52) 03/08/18 05:55 Alkaline Phosphatase 107 U/L (38-126) 03/08/18 05:55 Total Protein 7.1 G/DL (6.3-8.2) 03/08/18 05:55 Albumin 3.8 g/dL (3.5-5.0) 03/08/18 05:55 Globulin 3.3 gm/dL (2.2-3.9) 03/08/18 05:55 Albumin/Globulin Ratio 1.2 (1.0-2.1) 03/08/18 05:55 - Hospital Course Hospital Course: 78 year old female with history of HTN, NIDDM, OA and HLD, s/p R TKR POD # 7 is admitted to TCU for PT/OT and rehab. Patient was vitally stable, pain was appropriately controlled with medications. HTN, NIDDM and HLD were controlled with medications from home. Patient participated in PT and was tolerating therapy. Discharge Exam - Head Exam Head Exam: NORMAL INSPECTION - Eye Exam Eye Exam: Normal appearance - ENT Exam ENT Exam: Mucous Membranes Moist - Respiratory Exam Respiratory Exam: Clear to PA & Lateral, NORMAL BREATHING PATTERN, UNREMARKABLE. absent: Chest Wall Tenderness, Decreased Breath Sounds, Prolonged Expiratory Phase, Rales, Rhonchi, Wheezes, Respiratory Distress, Stridor - Cardiovascular Exam Cardiovascular Exam: REGULAR RHYTHM, +S1, +S2. absent: Clicks, Diastolic murmur, Gallop, JVD, Rubs - GI/Abdominal Exam GI & Abdominal Exam: Normal Bowel Sounds, Soft, Unremarkable. absent: Distended, Firm, Guarding, Rebound, Rigid, Tenderness - Extremities Exam Extremities exam: normal capillary refill, pedal pulses present Additional comments: Right knee without erythema, dresssing dry and clean - no drainage noted. - Neurological Exam Neurological exam: Alert, Oriented x3 - Psychiatric Exam Psychiatric exam: Normal Affect, Normal Mood - Skin Skin Exam: Dry, Intact, Normal Color, Warm Discharge Plan - Discharge Medications Prescriptions: Celecoxib [CeleBREX] 200 mg PO DAILY 14 Days #14 cap Ferrous Sulfate [Feosol] 325 mg PO DAILY 30 Days #30 tab Lactulose [Enulose] 20 gm PO DAILY PRN 7 Days udc PRN Reason: Constipation - Follow Up Plan Condition: GOOD Disposition: HOME/ ROUTINE Patient education suggested?: Yes Instructions: Total Knee Replacement (DC), Preventing Falls, Postop Total Knee Replacement Exercises Lying Down, Postop Total Knee Replacement Exercises Seated or Standing Additional Instructions: Patient to follow up with Dr. Jones 03/17/18 @ 11 a.m. Referrals: Brigette Tolbert MD [Staff Provider] - Britt Jones MD [Primary Care Provider] - Kane Thompson MD [Staff Provider] -
[2018-03-11] MEDS: Enoxaparin 40 mg Syringe SC SCH (08:35)
[2018-03-11] MEDS: Potassium Chloride 10 mEq ER Tab PO SCH (08:36)
[2018-03-11] MEDS: Magnesium Oxide 400 mg Tab UD PO SCH (08:36)
[2018-03-11] MEDS: Metoprolol Succinate 25 mg XL Tab PO SCH (08:36)
[2018-03-11] MEDS: GlipiZIDE 2.5 mg SR Tab PO SCH (08:36)
[2018-03-11] MEDS: NIFEdipine 90 mg ER Tab PO SCH (08:37)
== END 2018-03-11 13:02 | disposition home or self-care (01) | DRG 561 ==
LOC: H.TCU 23:08
PROVIDERS: ADMIT Family Medicine; ATTEND Family Medicine
PROC: F07Z9FZ Gait Training/Functional Ambulation Treatment using Assistive, Adaptive, Supportive or Protective Equipment (ICD-10-PCS; principal; 2018-03-04)
PROC: F08Z4FZ Home Management Treatment using Assistive, Adaptive, Supportive or Protective Equipment (ICD-10-PCS; 2018-03-04)
PROC: F07L6FZ Therapeutic Exercise Treatment of Musculoskeletal System - Lower Back / Lower Extremity using Assistive, Adaptive, Supportive or Protective Equipment (ICD-10-PCS; 2018-03-04)
DX: Z47.1 Aftercare following joint replacement surgery (principal); Z96.651 Presence of right artificial knee joint; M17.11 Unilateral primary osteoarthritis, right knee; G89.29 Other chronic pain; E11.9 Type 2 diabetes mellitus without complications; I10 Essential (primary) hypertension; E78.5 Hyperlipidemia, unspecified; E78.00 Pure hypercholesterolemia, unspecified; K59.00 Constipation, unspecified; Z79.84 Long term (current) use of oral hypoglycemic drugs; Z95.5 Presence of coronary angioplasty implant and graft; Z87.891 Personal history of nicotine dependence